=== PATIENT | female | born 1985 | race Caucasian/White ===

== ENCOUNTER 2017-03-10 23:37 | Emergency (ER) | payer MEDICAID, OTHER ==
[~2017-03-10] VITALS: Ht 167.6 cm; Wt 155.7 kg
[~2017-03-10 23:37] MED LIST: CIPR500T4 PO
[2017-03-10 23:41] VITALS: BP 140/100; PULSE 100; RESP 18; TEMP 98.2; O2SAT 97
[2017-03-10] MEDS ORDERED: AZO-95TA2 PO (23:56)
--- NOTE | 2017-03-11 00:14 | PD ---
HPI Chief Complaint: Complaint Time Seen by Provider: 23:58 Travel History International Travel<30 days: No Contact w/Intl Traveler<30days: No Traveled to known affect area: No History of Present Illness HPI The patient is a 31-year-old female that complains of frequency and urgency since 7 PM. She also has bilateral flank pain, right greater than left. She denies any fever, nausea, vomiting or diarrhea. She denies any dysuria. She took Azo and her urine is red/pink and color. PFSH Past Medical History Hx Anticoagulant Therapy: No Chest Pain: Yes (IN THE PAST) Diminished Hearing: No Gastrointestinal Disorders: Yes Immunizations Current: Yes Tetanus Vaccination: Unknown Influenza Vaccination: No ?: Unknown LMP: 02-19- : 1 Para: 1 Past Surgical History Abdominal Surgery: Yes (CHOLESYSTECTOMY 07/22/15) Cardiac Surgery: No Section: Yes Cholecystectomy: Yes (07/2015) Ear Surgery: No Endocrine Surgery: No Eye Surgery: No Genitourinary Surgery: No Gynecologic Surgery: No Hysterectomy: No Joint Replacement: No Oral Surgery: Yes (tonsillectomy) Thoracic Surgery: No Tonsillectomy: Yes Other Surgery: Yes Social History Alcohol Use: No Tobacco Use: Yes (11/10 ppd) Substance Use: No Allergies-Medications (Allergen,Severity, Reaction): Coded Allergies: No Known Allergies (Unverified , 03/10/17) Reported Meds & Prescriptions Reported Meds & Active Scripts Active Reported Azo-Standard (Phenazopyridine HCl) 95 Mg Tab 95 Mg PO Q8H PRN Review of Systems Except as stated in HPI: all other systems reviewed are Neg Physical Exam Narrative GENERAL: Well-nourished, well-developed patient in slight apparent distress with her urinary symptoms. Her blood pressure is 140/100 with a heart rate of 100 but the rest of the vital signs are normal. SKIN: Focused skin assessment warm/dry. No skin rash is present. HEAD: Normocephalic. EYES: No scleral icterus. No injection or drainage. NECK: Supple, trachea midline. No JVD or lymphadenopathy. CARDIOVASCULAR: Regular rate and rhythm without murmurs, gallops, or rubs. RESPIRATORY: Breath sounds equal bilaterally. No accessory muscle use. GASTROINTESTINAL: Abdomen soft, with tenderness to direct palpation in the bilateral flanks and suprapubic area, nondistended. No guarding or rebound is present. MUSCULOSKELETAL: No cyanosis, or edema. BACK: Nontender without obvious deformity. No CVA tenderness. Data Data Last Documented VS Vital Signs Date Time Temp Pulse Resp B/P Pulse Ox O2 Delivery O2 Flow Rate FiO2 03/10/17 23:41 98.2 100 18 140/100 97 Orders Urinalysis - C+S If Indicated (03/11/17 00:11) Ed Urine Pregnancytest Poc (03/11/17 00:11) Urine Culture (03/11/17 00:05) Labs Laboratory Tests Test 03/11/17 00:05 Urine Color ORANGE Urine Turbidity CLOUDY Urine pH 5.0 Urine Specific Raven 1.019 Urine Protein 100 mg/dL Urine Glucose (UA) 100 mg/dL Urine Ketones TRACE mg/dL Urine Occult Blood SMALL Urine Nitrite POS Urine Bilirubin NEG Urine Leukocyte Esterase MOD Urine RBC 3-5 /hpf Urine WBC 100-200 /hpf Urine Squamous Epithelial > 8 /hpf Cells Urine Bacteria MANY /hpf Microscopic Urinalysis Comment CULTURE INDICATED MDM Medical Decision Making Medical Screen Exam Complete: Yes Emergency Medical Condition: Yes Medical Record Reviewed: Yes Interpretation(s) The urine shows orange in color, cloudy with 100 protein, 100 glucose, trace ketones, small occult blood and positive nitrite and moderate leukocyte esterase and 100 200 white cells and many bacteria and culture is indicated. Differential Diagnosis Urinary tract infection, urinary stone, herpes genitalis Narrative Course The patient has a urinary tract infection. She appears to have both cystitis with her bladder symptoms and pyelonephritis with her flank tenderness. It was stressed to her that she needs to increase her liquid intake and establish a good urine flow through your kidneys. The patient has to by her own medicines and she cannot afford an expensive medicine. She will be given Cipro 500 twice daily for 10 days and she is told that this medication is free at [email or web address] Diagnosis Primary Impression: Pyelonephritis Additional Impression: Cystitis Additional Instructions: This medication and is free of [email or web address] pharmacy. It is one tablet twice daily for 10 days. As we discussed, it is extremely important to drink plenty of liquids to establish a good urine flow through your kidneys. This will literally wash the germs downstream and keep them away from your kidneys. Med/Other Pt SpecificInfo: Prescription(s) given Scripts Ciprofloxacin (Cipro)500 Mg Svt113 Mg PO BID 10 Days Ref 0 Prov:Ramos Lino MD 03/11/17 Disposition: 01 DISCHARGE HOME Condition: Stable Ramos Lino MD March 11, 2017 00:14
[2017-03-11 00:29] LABS: BLOOD, URINE SMALL (NEG); GLUCOSE,URINE 100 mg/dL (NEG); KETONE, URINE TRACE mg/dL (NEG)
[2017-03-11 00:35] LABS: NITRITE,URINE POS (NEG); URINE COLOR ORANGE (YELLW/STRAW)
[2017-03-11 00:36] LABS: BACTERIA, URINE MANY /hpf; COMMENT (UR) CULTURE INDICATED; CULTURE IF INDICATED CULTURE INDICATED; SQUAMOUS EPITHELIAL CELL URINE > 8 /hpf (0-5); WBC, URINE 100-200 /hpf (0-5)
[2017-03-11] MEDS ORDERED: CIPR-9 PO (00:59)
[2017-03-11] MEDS ORDERED: CIPROFLOXACIN 500 MG TAB PO ONE (01:15)
== END 2017-03-11 01:21 | disposition home or self-care (01) ==
LOC: PHED 23:37
DX: N10 Acute pyelonephritis (principal); B96.1 Klebsiella pneumoniae [K. pneumoniae] as the cause of diseases classified elsewhere; N30.00 Acute cystitis without hematuria; F17.210 Nicotine dependence, cigarettes, uncomplicated
CPT/HCPCS: 81001; 84703; 87077; 87086; 87186; 99284

== ENCOUNTER 2017-07-20 16:23 | Emergency (ER) | payer SELFPAY ==
[~2017-07-20] VITALS: Ht 167.6 cm; Wt 143.9 kg
[~2017-07-20 16:23] MED LIST changes: +AZO-95TA2 PO; +CIPR-9 PO; -CIPR500T4 PO
[2017-07-20 16:26] VITALS: BP 149/87; PULSE 102; RESP 18; TEMP 98.5; O2SAT 100
[2017-07-20] MEDS ORDERED: LOTR1CRE TOPICAL (17:05)
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
[2017-07-20] MEDS ORDERED: VIST50CA PO (17:45)
[2017-07-20] MEDS ORDERED: BENZ100 PO (17:52)
--- NOTE | 2017-07-21 14:23 | EKG ---
Date Performed: 07/20/2017 Time Performed: 17:27:49 PTAGE: 32 years EKG: Sinus rhythm LOW QRS VOLTAGE IN PRECORDIAL LEADS OTHERWISE WITHIN NORMAL LIMITS Compared to prior tracing no sign ificant change PREVIOUS TRACING : 10/18/2010 14.27 DOCTOR: Adolfo Jesus Interpretating Date/Time 07/21/2017 14:23:11
== END 2017-07-20 18:00 | disposition home or self-care (01) ==
LOC: PHEFT 16:23
DX: J00 Acute nasopharyngitis [common cold] (principal); B97.89 Other viral agents as the cause of diseases classified elsewhere; F41.9 Anxiety disorder, unspecified; R07.81 Pleurodynia; R05 Cough; R50.9 Fever, unspecified; F17.200 Nicotine dependence, unspecified, uncomplicated; Z87.19 Personal history of other diseases of the digestive system
CPT/HCPCS: 93005

== ENCOUNTER 2017-09-11 10:32 | Emergency (ER) | payer MEDICAID ==
[~2017-09-11] VITALS: Ht 167.6 cm; Wt 143.0 kg
[~2017-09-11 10:32] MED LIST changes: -AZO-95TA2 PO; +BENZ100 PO; -CIPR-9 PO; +VIST50CA PO
[2017-09-11 10:35] VITALS: BP 130/75; PULSE 87; RESP 18; TEMP 97.3; O2SAT 97
[2017-09-11] MEDS ORDERED: PRED20 PO (11:22)
[2017-09-11] MEDS ORDERED: AZIT250T3 PO (11:22)
[2017-09-11] MEDS ORDERED: BENZ100 PO (11:22)
--- NOTE | 2017-09-11 11:23 | PD ---
HPI Chief Complaint: Cold / Flu Symptoms Time Seen by Provider: 10:58 Travel History International Travel<30 days: No Contact w/Intl Traveler<30days: No Traveled to known affect area: No History of Present Illness HPI 32-year-old female here with productive cough, body aches, chills 4 days. She reports multiple sick contacts at work who currently have pneumonia. She reports chills without documented fever. She denies chest pain, shortness of breath, abdominal pain. She reports and written episodes of mild wheezing. She has no past medical history. No allergies to medications. Severity is moderate. No alleviating factors. PFSH Past Medical History Hx Anticoagulant Therapy: No Diminished Hearing: No Gastrointestinal Disorders: Yes Immunizations Current: Yes Tetanus Vaccination: > 5 Years Influenza Vaccination: No ?: Unknown LMP: 08/21/17 : 1 Para: 1 Past Surgical History Abdominal Surgery: Yes (CHOLESYSTECTOMY 07/22/15) Cardiac Surgery: No Section: Yes Cholecystectomy: Yes (07/2015) Ear Surgery: No Endocrine Surgery: No Eye Surgery: No Genitourinary Surgery: No Gynecologic Surgery: No Hysterectomy: No Joint Replacement: No Oral Surgery: Yes (tonsillectomy) Thoracic Surgery: No Tonsillectomy: Yes Other Surgery: Yes Social History Alcohol Use: No Tobacco Use: Yes (11/10 ppd) Substance Use: No Allergies-Medications (Allergen,Severity, Reaction): Coded Allergies: No Known Allergies (Unverified , 07/20/17) Reported Meds & Prescriptions Reported Meds & Active Scripts Active Tessalon Perles (Benzonatate) 100 Mg Cap 100 Mg PO TID PRN 5 Days Prednisone 20 Mg Tab 40 Mg PO DAILY Take 40 mg (2 tablets) daily for 5 days Azithromycin 250 Mg Tab 250 Mg PO DIRECTED Take 2 tabs (500 mg) on day 1 then 1 tab daily x 4 days. Review of Systems Except as stated in HPI: all other systems reviewed are Neg General / Constitutional: Positive: Chills Respiratory: Positive: Cough Physical Exam Narrative GENERAL: Alert, well-appearing female in no acute distress. SKIN: Warm and dry. HEAD: Normocephalic. EYES: No scleral icterus. No injection or drainage. NECK: Supple, trachea midline. No JVD or lymphadenopathy. CARDIOVASCULAR: Regular rate and rhythm without murmurs, gallops, or rubs. RESPIRATORY: Breath sounds equal bilaterally. No accessory muscle use. Very Mild expiratory wheezes, cleared with cough. No rhonchi or rales. GASTROINTESTINAL: Abdomen soft, non-tender, nondistended. MUSCULOSKELETAL: No cyanosis, or edema. BACK: Nontender without obvious deformity. No CVA tenderness. Data Data Last Documented VS Vital Signs Date Time Temp Pulse Resp B/P (MAP) Pulse Ox O2 Delivery O2 Flow Rate FiO2 09/11/17 10:47 20 09/11/17 10:35 97.3 87 130/75 (93) 97 Orders Orders Ed Urine Pregnancytest Poc (09/11/17 11:15) MDM Medical Decision Making Medical Screen Exam Complete: Yes Emergency Medical Condition: Yes Differential Diagnosis Bronchitis, pneumonia, influenza Narrative Course 32-year-old female here with productive cough, body aches, chills 4 days. She reports multiple sick contacts at work who currently have pneumonia. Patient's vital signs are stable. She is nontoxic appearing. She has mild expiratory wheezes on exam. She will be treated with Z-Joshua, steroids, bronchodilator, antitussives. Advised to follow up PCP. Patient verbalizes understanding and agrees to plan Diagnosis Primary Impression: Bronchitis Referrals: [facility] Departure Forms: Tests/Procedures, Work Release Enter return to work date: Sep 12, 2017 Additional Instructions: TAKE IBUPROFEN 600-800MG BY MOUTH EVERY 6 HOURS NEEDED FOR PAIN REST & STAY WELL HYDRATED. Scripts Benzonatate (Tessalon Perles) 100 Mg Cap 100 MG PO TID Y for COUGH for 5 Days, CAP 0 Refills Prov: Neelam Bartlett 09/11/17 Prednisone (Prednisone) 20 Mg Tab 40 MG PO DAILY, #10 TAB 0 Refills Take 40 mg (2 tablets) daily for 5 days Prov: Neelam Bartlett 09/11/17 Azithromycin (Azithromycin) 250 Mg Tab 250 MG PO DIRECTED for Infection, #6 TAB 0 Refills Take 2 tabs (500 mg) on day 1 then 1 tab daily x 4 days. Prov: Neelam Bartlett 09/11/17 Disposition: 01 DISCHARGE HOME Condition: Stable Neelam Bartlett Sep 11, 2017 11:23
== END 2017-09-11 11:33 | disposition home or self-care (01) ==
LOC: PHEFT 10:32
DX: J40 Bronchitis, not specified as acute or chronic (principal); M79.1 Myalgia; R68.83 Chills (without fever); F17.200 Nicotine dependence, unspecified, uncomplicated; Z87.19 Personal history of other diseases of the digestive system
CPT/HCPCS: 84703; 99284

== ENCOUNTER 2017-12-04 00:11 | Emergency (ER) | payer MEDICAID ==
[~2017-12-04] VITALS: Ht 167.6 cm; Wt 140.6 kg
[~2017-12-04 00:11] MED LIST changes: +AZIT250T3 PO; +PRED20 PO; -VIST50CA PO
[2017-12-04 00:16] VITALS: BP 146/95; PULSE 128; RESP 16; TEMP 98.7; O2SAT 99
[2017-12-04] MEDS ORDERED: IBUPROFEN 800 MG TAB PO ONE (01:30)
[2017-12-04] MEDS ORDERED: ACETAMINOPHEN/HYDROcodone 325 MG/5 MG TAB PO ONE (01:30)
--- NOTE | 2017-12-04 01:35 | PD ---
HPI Chief Complaint: Fall Time Seen by Provider: 01:27 Travel History International Travel<30 days: No Contact w/Intl Traveler<30days: No Traveled to known affect area: No History of Present Illness HPI 32-year-old white female presents to emergency department for evaluation of a fall. She states that she was going down her stairs and slipped on the last 4 steps. She struck both lower legs. She states that she did not hit her head or hurt her neck or back initially. She states that while waiting here she is feeling stiffness and pain in her head and neck. She denies syncope. No numbness, tingling. She states the pain is moderate but can be more severe with walking. Some relief with elevation. She has not had a tetanus shot over 5 years. PFSH Past Medical History Hx Anticoagulant Therapy: No Diminished Hearing: No Gastrointestinal Disorders: Yes Immunizations Current: Yes Tetanus Vaccination: > 5 Years LMP: 11/18/17 : 1 Para: 1 Past Surgical History Abdominal Surgery: Yes (CHOLESYSTECTOMY 07/22/15) Cardiac Surgery: No Section: Yes Cholecystectomy: Yes (07/2015) Ear Surgery: No Endocrine Surgery: No Eye Surgery: No Genitourinary Surgery: No Gynecologic Surgery: No Hysterectomy: No Joint Replacement: No Oral Surgery: Yes (tonsillectomy) Thoracic Surgery: No Tonsillectomy: Yes Other Surgery: Yes Social History Alcohol Use: No Tobacco Use: Yes (11/10 ppd) Substance Use: No Allergies-Medications (Allergen,Severity, Reaction): Coded Allergies: No Known Allergies (Unverified , 07/20/17) Reported Meds & Prescriptions Reported Meds & Active Scripts Active Tessalon Perles (Benzonatate) 100 Mg Cap 100 Mg PO TID PRN 5 Days Prednisone 20 Mg Tab 40 Mg PO DAILY Take 40 mg (2 tablets) daily for 5 days Azithromycin 250 Mg Tab 250 Mg PO DIRECTED Take 2 tabs (500 mg) on day 1 then 1 tab daily x 4 days. Review of Systems Except as stated in HPI: all other systems reviewed are Neg Physical Exam Narrative GENERAL: Well-developed, well-nourished in no apparent distress. Nontoxic appearing. HEAD: Normocephalic, atraumatic. EYES: Pupils equal round and reactive. Extraocular motions intact. No scleral icterus. No injection or drainage. ENT: Nose clear. Throat without erythema, tonsillar hypertrophy or exudate. Uvula midline. Airway patent. NECK: Trachea midline. Supple, mild paraspinal tenderness, moves head freely. No central bony tenderness or spasm. CARDIOVASCULAR: Regular rate and rhythm without murmurs, gallops, or rubs. RESPIRATORY: Clear to auscultation. Breath sounds equal bilaterally. No wheezes , rales, or rhonchi. GASTROINTESTINAL: Abdomen soft, non-tender, nondistended. No hepato-splenomegaly , or palpable masses. No guarding. EXTREMITIES: No clubbing, cyanosis, or edema. No joint tenderness. Patient has abrasions and tenderness to both pretibial regions. Early ecchymosis. No bony tenderness. BACK: Nontender without deformity. No flank tenderness. NEUROLOGICAL: Awake, alert and oriented x 3 .Cranial nerves grossly intact. Motor and sensory grossly within normal limits. Normal speech. Data Data Last Documented VS Vital Signs Date Time Temp Pulse Resp B/P (MAP) Pulse Ox O2 Delivery O2 Flow Rate FiO2 12/04/17 00:16 98.7 128 16 146/95 (112) 99 Room Air Orders Orders Tibia/Fibula (Ap/Lat) (12/04/17 01:30) Ice/Cold Pack (12/04/17 01:30) Ibuprofen (Motrin) (12/04/17 01:30) Acetamin-Hydrocod 325-5 Mg ([place]more 5-325 (12/04/17 01:30) Tibia/Fibula (Ap/Lat) (12/04/17 01:30) MDM Medical Decision Making Medical Screen Exam Complete: Yes Emergency Medical Condition: Yes Medical Record Reviewed: Yes Interpretation(s) Left tib-fib: Negative for acute fracture. Right tib-fib: Negative for fracture Differential Diagnosis MDM: High Differential diagnoses: Fracture, sprain, strain, dislocation, contusion, neurovascular injury Narrative Course Patient is given tetanus in position, Motrin 800 mg and Lortab 5 a grams by mouth. X-rays of the tib-fib's. X-rays are negative for bony injury. This is fall, bilateral leg contusions Diagnosis Primary Impression: fall Additional Impression: bilateral leg contusions Patient Instructions: Narcotic given in the ED, General Instructions Departure Forms: Tests/Procedures, Work Release Special Instructions: No work 2 days. Additional Instructions: Rest. Ice for the next 3 days followed by heat . Flexeril and Voltaren. Follow-up with a primary care doctor in one week. Return to the ER for emergencies. Med/Other Pt SpecificInfo: Prescription(s) given Disposition: 01 DISCHARGE HOME Condition: Stable José Manuel Kline Dec 04, 2017 01:35
[2017-12-04] MEDS ORDERED: DICL75TA PO (01:37)
[2017-12-04] MEDS ORDERED: CYCL10TA PO (01:37)
[2017-12-04] MEDS ORDERED: TETANUS/DIPHTHERIA TOXOID ADULT 0.5 ML VIAL IM ONE (01:45)
--- NOTE | 2017-12-04 02:39 | RADRPT ---
EXAM DATE/TIME: 12/04/2017 01:51 [facility] COMPARISON: No previous studies available for comparison. INDICATIONS : Pt fell down concrete steps- Pain to bilateral Tib-Fib MEDICAL HISTORY : None. SURGICAL HISTORY : None. ENCOUNTER: Initial ACUITY: 1 day PAIN SCORE: 8/10 LOCATION: Right Tib-Fib FINDINGS: Two view examination of the right tibia demonstrates no evidence of fracture or dislocation. Bony mi neralization is normal. The soft tissue structures are intact. CONCLUSION: No acute disease. Flo Orourke MD on December 04, 2017 at 2:36 Board Certified Radiologist. This report was verified electronically.
--- NOTE | 2017-12-04 02:39 | RADRPT ---
EXAM DATE/TIME: 12/04/2017 01:51 [facility] COMPARISON: No previous studies available for comparison. INDICATIONS : Pt fell down concrete steps- Pain to bilateral Tib-Fib MEDICAL HISTORY : None. SURGICAL HISTORY : None. ENCOUNTER: Initial ACUITY: 1 day PAIN SCORE: 8/10 LOCATION: Left Tib-Fib FINDINGS: No fracture is seen. The knee and ankle joints are normally aligned. There is soft tissue swelling of the anterior proximal lower leg. CONCLUSION: Soft tissue swelling. Flo Orourke MD on December 04, 2017 at 2:36 Board Certified Radiologist. This report was verified electronically.
== END 2017-12-04 02:25 | disposition home or self-care (01) ==
LOC: NEPD 00:11
DX: S80.11XA Contusion of right lower leg, initial encounter (principal); S80.12XA Contusion of left lower leg, initial encounter; M54.2 Cervicalgia; F17.200 Nicotine dependence, unspecified, uncomplicated; W10.9XXA Fall (on) (from) unspecified stairs and steps, initial encounter; Z23 Encounter for immunization
CPT/HCPCS: 73590; 90471; 90714

== ENCOUNTER 2017-12-11 00:35 | Emergency (ER) | payer MEDICAID ==
[~2017-12-11] VITALS: Ht 167.6 cm; Wt 140.0 kg
[~2017-12-11 00:35] MED LIST changes: +CYCL10TA PO; +DICL75TA PO
[2017-12-11 00:40] VITALS: BP 141/103; PULSE 129; RESP 16; TEMP 97.9; O2SAT 100
[2017-12-11] MEDS ORDERED: SODIUM CHLORIDE 0.9% FLUSH 10 ML FLUSH IV FLUSH PRN (01:00)
[2017-12-11] MEDS ORDERED: MORPHINE SULFATE 2 MG/ML INJ IV PUSH ONE (01:00)
--- NOTE | 2017-12-11 01:05 | PD ---
HPI Chief Complaint: Pain: Acute or Chronic Time Seen by Provider: 00:53 Travel History International Travel<30 days: No Contact w/Intl Traveler<30days: No Traveled to known affect area: No History of Present Illness HPI 32-year-old female here for evaluation of bilateral lower extremity pain, swelling, and ecchymosis. The patient reports that she was here a week ago with bilateral leg injuries after falling down a set of stairs. Chart was reviewed from this visit and show that the patient had bilateral tib-fib x-rays which showed soft tissue swelling, no acute bony abnormality. 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 Today she noticed that the bruising appears to be worsening and is traveling down her legs into her feet. Pain is moderate to severe, constant, described as burning, worse with movement and palpation. No history of DVT or PE. No chest pain or dyspnea. No further trauma. PFSH Past Medical History Hx Anticoagulant Therapy: No Chest Pain: Yes (IN THE PAST) Diminished Hearing: No Gastrointestinal Disorders: Yes Immunizations Current: Yes Tetanus Vaccination: < 5 Years ?: Not LMP: 11/16/2017 : 1 Para: 1 Past Surgical History Abdominal Surgery: Yes (CHOLESYSTECTOMY 07/22/15) Cardiac Surgery: No Section: Yes Cholecystectomy: Yes (07/2015) Ear Surgery: No Endocrine Surgery: No Eye Surgery: No Genitourinary Surgery: No Gynecologic Surgery: No Hysterectomy: No Joint Replacement: No Oral Surgery: Yes (tonsillectomy) Thoracic Surgery: No Tonsillectomy: Yes Other Surgery: Yes Social History Alcohol Use: No Tobacco Use: Yes (11/10 ppd) Substance Use: No Allergies-Medications (Allergen,Severity, Reaction): Coded Allergies: No Known Allergies (Unverified Adverse Reaction, Unknown, 12/11/17) Reported Meds & Prescriptions Reported Meds & Active Scripts Active Flexeril (Cyclobenzaprine HCl) 10 Mg Tab 10 Mg PO TID Diclofenac Sodium DR (Diclofenac Sodium) 75 Mg Tabdr 75 Mg PO BID Tessalon Perles (Benzonatate) 100 Mg Cap 100 Mg PO TID PRN 5 Days Prednisone 20 Mg Tab 40 Mg PO DAILY Take 40 mg (2 tablets) daily for 5 days Azithromycin 250 Mg Tab 250 Mg PO DIRECTED Take 2 tabs (500 mg) on day 1 then 1 tab daily x 4 days. Review of Systems Except as stated in HPI: all other systems reviewed are Neg Physical Exam Narrative GENERAL: Well-developed, well-nourished, overweight, comfortable, no apparent distress. SKIN: Bilateral anterior legs with diffuse ecchymosis with ecchymosis in bilateral feet. HEAD: Atraumatic. Normocephalic. EYES: Pupils equal and round. No scleral icterus. No injection or drainage. ENT: No nasal bleeding or discharge. Mucous membranes pink and moist. NECK: Trachea midline. No JVD. CARDIOVASCULAR: Regular rate and rhythm. Bilateral dorsalis pedis pulses are brisk and equal. RESPIRATORY: No accessory muscle use. Clear to auscultation. Breath sounds equal bilaterally. GASTROINTESTINAL: Abdomen soft, non-tender, nondistended. Hepatic and splenic margins not palpable. MUSCULOSKELETAL: Skin exam as above. Moderate edema to bilateral lower extremities from foot to knee. Left anterior/proximal leg with moderate sized hematoma. All compartments in bilateral lower extremities are supple. Bilateral feet are neurovascularly intact. Normal range of motion flexion and extension in bilateral lower extremities in foot, knee, ankle, and hip joints. NEUROLOGICAL: Awake and alert. No obvious cranial nerve deficits. Motor grossly within normal limits. Normal speech. PSYCHIATRIC: Appropriate mood and affect; insight and judgment normal. Data Data Last Documented VS Vital Signs Date Time Temp Pulse Resp B/P (MAP) Pulse Ox O2 Delivery O2 Flow Rate FiO2 12/11/17 02:59 98 18 116/56 (76) 97 12/11/17 00:40 97.9 Room Air Orders Orders Beta Hcg (Quant/Titer) (12/11/17 00:58) Complete Blood Count With Diff (12/11/17 00:58) Comprehensive Metabolic Panel (12/11/17 00:58) Prothrombin Time / Inr (Pt) (12/11/17 00:58) Act Partial Throm Time (Ptt) (12/11/17 00:58) Iv Access Insert/Monitor (12/11/17 00:58) Ecg Monitoring (12/11/17 00:58) Oximetry (12/11/17 00:58) Sodium Chloride 0.9% Flush (Ns Flush) (12/11/17 01:00) Us Leg Venous Doppler Bilat (12/11/17 ) Morphine Inj (Morphine Inj) (12/11/17 01:00) Creatine Kinase (Cpk) (12/11/17 00:58) Labs Laboratory Tests Test 12/11/17 01:10 White Blood Count 11.5 TH/MM3 Red Blood Count 4.82 MIL/MM3 Hemoglobin 12.9 GM/DL Hematocrit 37.8 % Mean Corpuscular Volume 78.4 FL Mean Corpuscular Hemoglobin 26.7 PG Mean Corpuscular Hemoglobin Concent 34.1 % Red Cell Distribution Width 15.8 % Platelet Count 319 TH/MM3 Mean Platelet Volume 8.9 FL Neutrophils (%) (Auto) 65.4 % Lymphocytes (%) (Auto) 28.1 % Monocytes (%) (Auto) 4.5 % Eosinophils (%) (Auto) 1.2 % Basophils (%) (Auto) 0.8 % Neutrophils # (Auto) 7.5 TH/MM3 Lymphocytes # (Auto) 3.2 TH/MM3 Monocytes # (Auto) 0.5 TH/MM3 Eosinophils # (Auto) 0.1 TH/MM3 Basophils # (Auto) 0.1 TH/MM3 CBC Comment DIFF FINAL Differential Comment Prothrombin Time 9.6 SEC Prothromb Time International Ratio 0.9 RATIO Activated Partial Thromboplast Time 30.3 SEC Blood Urea Nitrogen 13 MG/DL Creatinine 0.87 MG/DL Random Glucose 96 MG/DL Total Protein 7.9 GM/DL Albumin 3.7 GM/DL Calcium Level 8.7 MG/DL Alkaline Phosphatase 107 U/L Aspartate Amino Transf (AST/SGOT) 21 U/L Alanine Aminotransferase (ALT/SGPT) 24 U/L Total Bilirubin 0.4 MG/DL Sodium Level 139 MEQ/L Potassium Level 4.0 MEQ/L Chloride Level 104 MEQ/L Carbon Dioxide Level 26.6 MEQ/L Anion Gap 8 MEQ/L Estimat Glomerular Filtration Rate 76 ML/MIN Total Creatine Kinase 53 U/L Human Chorionic Gonadotropin, Quant LESS THAN 1 MIU/ML MDM Medical Decision Making Medical Screen Exam Complete: Yes Emergency Medical Condition: Yes Differential Diagnosis Bilateral lower cavity edema after trauma, DVT, compartment syndrome less likely Narrative Course Vital signs reviewed. CBC: WBC 11.5, hemoglobin 12.9, hematocrit 37.8, platelets 319. CMP is unremarkable. Total CK is 53. Beta hCG is negative. Bilateral lower extremity venous duplex: Normal exam. Patient was made aware of all findings. She was given a dose of morphine and is resting comfortably. All compartments in her bilateral lower trauma is are supple. Clinically she does not have compartment syndrome. Her CK is also normal at 53. She has brisk bilateral dorsalis pedis pulses. She does have diffuse ecchymosis to bilateral lower extremities, mainly anterior. She did have an injury about a week ago. There are no signs of cellulitis. At this point I believe she is stable for discharge home and advised to keep her legs elevated as much as possible. PMD follow-up this week. She was advised on when to return to the emergency department. She verbalizes understanding and agreement with plan. Diagnosis Primary Impression: Bilateral leg pain Additional Impressions: Bilateral leg edema Traumatic ecchymosis of lower leg Qualified Codes: S80.10XA - Contusion of unspecified lower leg, initial encounter Referrals: [facility] 3 days Primary Care Physician 3 days Additional Instructions: Follow-up with a primary care physician this week. Return to the emergency department for worsening symptoms or any other concerns. Scripts Hydrocodone-Acetaminophen (Hydrocodone-Acetaminophen) 5-325 mg Tab 1 TAB PO Q6H Y for PAIN, #10 TAB 0 Refills Prov: Raudel Ying MD 12/11/17 Disposition: 01 DISCHARGE HOME Condition: Stable Raudel Ying MD Dec 11, 2017 01:04
[2017-12-11 01:42] LABS: HEMATOCRIT 37.8 % (35.0-46.0); HEMOGLOBIN 12.9 GM/DL (11.6-15.3); MEAN CELL VOLUME 78.4 FL (80.0-100.0); MEAN CORPUSCULAR HEMOGLOBIN 26.7 PG (27.0-34.0); MEAN CORPUSCULAR HGB CONC 34.1 % (32.0-36.0); MEAN PLATELET VOLUME 8.9 FL (7.0-11.0); NEUT % 65.4 % (16.0-70.0); PLATELET COUNT 319 TH/MM3 (150-450); RED BLOOD COUNT 4.82 MIL/MM3 (4.00-5.30); RED CELL DISTRIBUTION WIDTH 15.8 % (11.6-17.2); WHITE BLOOD COUNT 11.5 TH/MM3 (4.0-11.0)
[2017-12-11 01:43] LABS: AUTOMATED NEUTROPHIL # 7.5 TH/MM3 (1.8-7.7); BASOPHIL # 0.1 TH/MM3 (0-0.2); BASOPHIL % 0.8 % (0.0-2.0); EOSINOPHIL # 0.1 TH/MM3 (0-0.4); EOSINOPHIL % 1.2 % (0.0-4.0); LYMPH % 28.1 % (9.0-44.0); LYMPHOCYTE # 3.2 TH/MM3 (1.0-4.8); MONO % 4.5 % (0.0-8.0); MONOCYTE # 0.5 TH/MM3 (0-0.9)
[2017-12-11 01:56] LABS: INTERNATIONAL NORMALIZED RATIO 0.9 RATIO; PROTHROMBIN TIME - PATIENT 9.6 SEC (9.8-11.6)
[2017-12-11 01:58] LABS: ALBUMIN 3.7 GM/DL (3.4-5.0); ALT (GPT) 24 U/L (10-53); AST (GOT) 21 U/L (15-37); BICARBONATE 26.6 MEQ/L (21.0-32.0); BLOOD UREA NITROGEN 13 MG/DL (7-18); CALCIUM 8.7 MG/DL (8.5-10.1); CHLORIDE 104 MEQ/L (98-107); CREATININE 0.87 MG/DL (0.50-1.00); GLOMERULAR FILTRATION RATE 76 ML/MIN (>89); GLUCOSE,RANDOM 96 MG/DL (74-106); SODIUM (NA) 139 MEQ/L (136-145)
[2017-12-11 02:11] LABS: ALKALINE PHOSPHATASE 107 U/L (45-117); TOTAL BILIRUBIN ADULT 0.4 MG/DL (0.2-1.0); TOTAL PROTEIN 7.9 GM/DL (6.4-8.2)
--- NOTE | 2017-12-11 02:57 | RADRPT ---
EXAM DATE/TIME: 12/11/2017 01:58 [facility] COMPARISON: No previous studies available for comparison. INDICATIONS : Bilateral leg edema. MEDICAL HISTORY : Chest pain. Tobacco use. SURGICAL HISTORY : Tonsillectomy.Cholecystectomy. section. ENCOUNTER: Initial ACUITY: 1 week PAIN SCORE: 10/10 LOCATION: Bilateral leg. TECHNIQUE: Venous ultrasound of the left and right leg was performed from the inguinal ligament to the proximal calf. Real-time, color Doppler and spectral tracing, compression and augmentation techniques were us ed. FINDINGS: RIGHT LEG: There is normal compressibility of the deep venous system from the inguinal region to the proximal ca lf. No echogenic clot is seen in the lumen of the common femoral, femoral, popliteal, and posterior tibial veins. There is a normal response of the venous system to proximal and distal augmentation an d respiration. LEFT LEG: There is normal compressibility of the deep venous system from the inguinal region to the proximal ca lf. No echogenic clot is seen in the lumen of the common femoral, femoral, popliteal, and posterior tibial veins. There is a normal response of the venous system to proximal and distal augmentation an d respiration. CONCLUSION: Normal examination. Nikolay Norris MD on December 11, 2017 at 2:56 Board Certified Radiologist. This report was verified electronically.
[2017-12-11 02:59] VITALS: BP 116/56; PULSE 98; RESP 18; O2SAT 97
[2017-12-11] MEDS ORDERED: HYDR-3516 PO (03:07)
[2017-12-11] MEDS ORDERED: KETOROLAC TROMETHAMINE 30 MG/ML (IVP) VIAL IV PUSH ONE (04:00)
== END 2017-12-11 04:11 | disposition home or self-care (01) ==
LOC: NEPE 00:35
DX: S80.12XD Contusion of left lower leg, subsequent encounter (principal); S80.11XD Contusion of right lower leg, subsequent encounter; E66.3 Overweight; F17.200 Nicotine dependence, unspecified, uncomplicated; W10.9XXD Fall (on) (from) unspecified stairs and steps, subsequent encounter; Z79.899 Other long term (current) drug therapy
CPT/HCPCS: 80053; 82550; 84702; 85025; 85610; 85730; 93970; 96374; 96375; 99284; J1885; J2270

== ENCOUNTER 2018-02-06 13:02 | Emergency (ER) | payer SELFPAY ==
[~2018-02-06] VITALS: Ht 167.6 cm; Wt 140.4 kg
[~2018-02-06 13:02] MED LIST changes: +HYDR-3516 PO
[2018-02-06 13:21] VITALS: BP 153/79; PULSE 106; RESP 20; TEMP 98.7; O2SAT 99
--- NOTE | 2018-02-06 14:08 | RADRPT ---
EXAM DATE/TIME: 02/06/2018 13:35 [facility] COMPARISON: No previous studies available for comparison. INDICATIONS : Left hand pain, injured while mopping. MEDICAL HISTORY : None. SURGICAL HISTORY : None. ENCOUNTER: Initial ACUITY: 3 days PAIN SCORE: 8/10 LOCATION: Left middle hand FINDINGS: Three view examination of the left hand demonstrates no soft tissue swelling, dislocation, or fractur e. The carpal bones appear intact. The interphalangeal and metacarpophalangeal joints are intact. Bony mineralization is normal. CONCLUSION: Negative exam. No acute osseous injury. Partha Claire MD on February 06, 2018 at 14:02 Board Certified Radiologist. This report was verified electronically.
[2018-02-06] MEDS ORDERED: DICL75TA PO (14:23)
[2018-02-06] MEDS ORDERED: BACL10TA PO (14:23)
--- NOTE | 2018-02-06 14:26 | PD ---
HPI Chief Complaint: Pain: Acute or Chronic Time Seen by Provider: 14:22 Travel History International Travel<30 days: No Contact w/Intl Traveler<30days: No Traveled to known affect area: No History of Present Illness HPI [id number] female presents for evaluation of left hand pain. Symptoms started yesterday after mopping. She describes it as a crampy/sharp pain in the left hand which is worse with movement. Denies any neck pain, arm pain, numbness or tingling. Denies any trauma. She has no other complaints at this time. PFSH Past Medical History Hx Anticoagulant Therapy: No Chest Pain: Yes (IN THE PAST) Diminished Hearing: No Gastrointestinal Disorders: Yes Immunizations Current: Yes ?: Not LMP: 4 days ago : 1 Para: 1 Past Surgical History Abdominal Surgery: Yes (CHOLESYSTECTOMY 07/22/15) Cardiac Surgery: No Section: Yes Cholecystectomy: Yes (07/2015) Ear Surgery: No Endocrine Surgery: No Eye Surgery: No Genitourinary Surgery: No Gynecologic Surgery: No Hysterectomy: No Joint Replacement: No Oral Surgery: Yes (tonsillectomy) Thoracic Surgery: No Tonsillectomy: Yes Other Surgery: Yes Social History Alcohol Use: No Tobacco Use: Yes (11/10 ppd) Substance Use: No Allergies-Medications (Allergen,Severity, Reaction): Coded Allergies: No Known Allergies (Unverified Adverse Reaction, Unknown, 12/11/17) Reported Meds & Prescriptions Reported Meds & Active Scripts Active Diclofenac Sodium DR (Diclofenac Sodium) 75 Mg Tabdr 75 Mg PO BID 7 Days Baclofen 10 Mg Tab 10 Mg PO Q8HR 7 Days Hydrocodone-Acetaminophen 5-325 mg Tab 1 Tab PO Q6H PRN Flexeril (Cyclobenzaprine HCl) 10 Mg Tab 10 Mg PO TID Diclofenac Sodium DR (Diclofenac Sodium) 75 Mg Tabdr 75 Mg PO BID Tessalon Perles (Benzonatate) 100 Mg Cap 100 Mg PO TID PRN 5 Days Prednisone 20 Mg Tab 40 Mg PO DAILY Take 40 mg (2 tablets) daily for 5 days Azithromycin 250 Mg Tab 250 Mg PO DIRECTED Take 2 tabs (500 mg) on day 1 then 1 tab daily x 4 days. Review of Systems Musculoskeletal: Positive: Limited ROM, Pain Skin: Positive Other (Denies open wounds) Neurologic: No: Paresthesia Physical Exam Narrative GENERAL: Well-nourished female no acute distress SKIN: Warm and dry. CARDIOVASCULAR: Regular rate and rhythm. No murmur appreciated. RESPIRATORY: No accessory muscle use. Clear to auscultation. Breath sounds equal bilaterally. Extremities: There is tenderness to palpation to the mid left hand. There is no deformity. The patient is holding most of her fingers in passive flexion. She has pain with range of motion activities of the left hand nonspecifically. Distal sensation is preserved in the median, radial, ulnar nerve distributions. 2+ radial pulse. Data Data Last Documented VS Vital Signs Date Time Temp Pulse Resp B/P (MAP) Pulse Ox O2 Delivery O2 Flow Rate FiO2 02/06/18 13:21 98.7 106 20 153/79 (103) 99 Orders Orders Hand, Complete ([id number]) (02/06/18 ) Ketorolac Inj (Toradol Inj) (02/06/18 14:30) Orphenadrine Inj (Norflex Inj) (02/06/18 14:30) MDM Medical Decision Making Medical Screen Exam Complete: Yes Emergency Medical Condition: Yes Medical Record Reviewed: Yes Differential Diagnosis Hand strain, tendinitis, carpal pedal spasm Narrative Course An x-ray of the left hand was obtained in triage which reveals no acute abnormalities. Suspect soft tissue musculoskeletal pain. The plan is to discharge the patient with a short course of muscle relaxants and NSAIDs. Recommend follow-up with a hand specialist for recheck in 1-2 weeks if symptoms persist. Diagnosis Primary Impression: Strain of left hand Referrals: Quentin Sands MD Additional Instructions: Medication as needed. Take diclofenac with meals. Do not drive or drink alcohol and taking baclofen. Follow-up with a hand specialist such as Dr. Sands in 1-2 weeks if symptoms persist. Return for any emergent medical conditions. Med/Other Pt SpecificInfo: Prescription(s) given Scripts Diclofenac Sodium DR (Diclofenac Sodium DR) 75 Mg Tabdr 75 MG PO BID for 7 Days, #14 TAB 0 Refills Prov: Lilliana Valentino MD 02/06/18 Baclofen (Baclofen) 10 Mg Tab 10 MG PO Q8HR for 7 Days, TAB 0 Refills Prov: Lilliana Valentino MD 02/06/18 Disposition: 01 DISCHARGE HOME Condition: Stable Jamel Shepard. PA Feb 06, 2018 14:26
[2018-02-06] MEDS ORDERED: ORPHENADRINE INJ 60 MG/2 ML AMP IM ONE (14:30)
[2018-02-06] MEDS ORDERED: KETOROLAC TROMETHAMINE 60 MG/2 ML (IM) VIAL IM ONE (14:30)
== END 2018-02-06 15:13 | disposition home or self-care (01) ==
LOC: NEPK 13:02
DX: S66.912A Strain of unspecified muscle, fascia and tendon at wrist and hand level, left hand, initial encounter (principal); X58.XXXA Exposure to other specified factors, initial encounter; Y93.E5 Activity, floor mopping and cleaning
CPT/HCPCS: 73130; 96372; 99283; J1885; J2360

== ENCOUNTER 2018-03-15 14:23 | Observation (INO) | payer MEDICAID ==
[~2018-03-15 14:23] MED LIST changes: +BACL10TA PO
[2018-03-15 14:26] VITALS: BP 156/95; PULSE 100; RESP 18; TEMP 98; O2SAT 100
[2018-03-15] MEDS ORDERED: SODIUM CHLOR 0.9% 1000 ML INJ 1,000 ML IV SCH ×2 (14:45→22:16)
[2018-03-15] MEDS ORDERED: SODIUM CHLORIDE 0.9% FLUSH 10 ML FLUSH IV FLUSH PRN ×2 (14:45→22:30)
[2018-03-15] MEDS ORDERED: ONDANSETRON HCL 4 MG/2 ML VIAL IVP ONE (14:45)
[2018-03-15] MEDS ORDERED: MORPHINE SULFATE 4 MG/ML INJ IV PUSH ONE (14:45)
--- NOTE | 2018-03-15 14:55 | PD ---
HPI Chief Complaint: Flank/Kidney Pain Time Seen by Provider: 14:35 Travel History International Travel<30 days: No Contact w/Intl Traveler<30days: No Traveled to known affect area: No History of Present Illness HPI Patient is a 32-year-old female with history of cholecystectomy as well as C- section in the past, ovarian cyst, presents the emergency room complaints of right lower quadrant abdominal pain. Patient reports that around 7-8AM this morning, she began to have right lower quadrant abdominal pain. Patient reports that pain has been persistent, reports that pain is moderate to severe in nature. Patient reports that nothing makes pain better or worse. Patient reports that she feels nauseous and diaphoretic with her symptoms. Denies any constipation or diarrhea, denies any pelvic pain, denies any vaginal discharge, reports that she currently is on her period. Reports that she has never had pain like this in the past. PFSH Past Medical History Hx Anticoagulant Therapy: No Chest Pain: Yes (IN THE PAST) Diminished Hearing: No Gastrointestinal Disorders: Yes Immunizations Current: Yes ?: Unknown : 1 Para: 1 Past Surgical History Abdominal Surgery: Yes (CHOLESYSTECTOMY 07/22/15) Cardiac Surgery: No Section: Yes Cholecystectomy: Yes (07/2015) Ear Surgery: No Endocrine Surgery: No Eye Surgery: No Genitourinary Surgery: No Gynecologic Surgery: No Hysterectomy: No Joint Replacement: No Neurologic Surgery: No Oral Surgery: Yes (tonsillectomy) Thoracic Surgery: No Tonsillectomy: Yes Other Surgery: Yes Social History Alcohol Use: No Tobacco Use: Yes (11/10 ppd) Substance Use: No Allergies-Medications (Allergen,Severity, Reaction): Coded Allergies: No Known Allergies (Unverified Adverse Reaction, Unknown, 12/11/17) Reported Meds & Prescriptions Reported Meds & Active Scripts Active Review of Systems General / Constitutional: No: Fever Eyes: No: Visual changes HENT: No: Headaches Cardiovascular: No: Chest Pain or Discomfort Respiratory: No: Shortness of Breath Gastrointestinal: Positive: Nausea, Abdominal Pain, No: Vomiting, Diarrhea, Constipation Genitourinary: No: Dysuria Musculoskeletal: No: Pain Skin: No Rash Neurologic: No: Weakness Psychiatric: No: Depression Endocrine: No: Polydipsia Hematologic/Lymphatic: No: Easy Bruising Physical Exam Narrative GENERAL: moderate distress SKIN: Focused skin assessment warm/dry. HEAD: Atraumatic. Normocephalic. EYES: Pupils equal and round. No scleral icterus. No injection or drainage. ENT: No nasal bleeding or discharge. Mucous membranes pink and moist. NECK: Trachea midline. No JVD. CARDIOVASCULAR: Regular rate and rhythm. No murmur appreciated. RESPIRATORY: No accessory muscle use. Clear to auscultation. Breath sounds equal bilaterally. GASTROINTESTINAL: Abdomen soft, increased tenderness to RLQ with guarding, nondistended. Hepatic and splenic margins not palpable. MUSCULOSKELETAL: No obvious deformities. No clubbing. No cyanosis. No edema. NEUROLOGICAL: Awake and alert. No obvious cranial nerve deficits. Motor grossly within normal limits. Normal speech. PSYCHIATRIC: Appropriate mood and affect; insight and judgment normal. Data Data Last Documented VS Vital Signs Date Time Temp Pulse Resp B/P (MAP) Pulse Ox O2 Delivery O2 Flow Rate FiO2 03/15/18 15:30 18 03/15/18 14:26 98.0 100 156/95 (115) 100 Orders Orders Complete Blood Count With Diff (03/15/18 14:45) Comprehensive Metabolic Panel (03/15/18 14:45) Lipase (03/15/18 14:45) Prothrombin Time / Inr (Pt) (03/15/18 14:45) Act Partial Throm Time (Ptt) (03/15/18 14:45) Urinalysis - C+S If Indicated (03/15/18 14:45) Iv Access Insert/Monitor (03/15/18 14:45) Ecg Monitoring (03/15/18 14:45) Oximetry (03/15/18 14:45) NPO (03/15/18 14:45) Morphine Inj (Morphine Inj) (03/15/18 14:45) Ondansetron Inj (Zofran Inj) (03/15/18 14:45) Sodium Chlor 0.9% 1000 Ml Inj (Ns 1000 M (03/15/18 14:45) Sodium Chloride 0.9% Flush (Ns Flush) (03/15/18 14:45) Ed Urine Pregnancytest Poc (03/15/18 14:45) Beta Hcg (Quant/Titer) (03/15/18 15:49) Us Pelvis (Ques Preg/Ectopic) (03/15/18 ) Labs Laboratory Tests Test 03/15/18 13:12 03/15/18 15:12 03/15/18 15:40 Blood Urea Nitrogen 6 MG/DL Creatinine 0.77 MG/DL Random Glucose 106 MG/DL Total Protein 7.5 GM/DL Albumin 3.6 GM/DL Calcium Level 8.5 MG/DL Alkaline Phosphatase 91 U/L Aspartate Amino Transf (AST/SGOT) 13 U/L Alanine Aminotransferase (ALT/SGPT) 18 U/L Total Bilirubin 0.4 MG/DL Sodium Level 139 MEQ/L Potassium Level 3.9 MEQ/L Chloride Level 107 MEQ/L Carbon Dioxide Level 23.4 MEQ/L Anion Gap 9 MEQ/L Estimat Glomerular Filtration Rate 88 ML/MIN Lipase 92 U/L White Blood Count 10.5 TH/MM3 Red Blood Count 4.98 MIL/MM3 Hemoglobin 13.2 GM/DL Hematocrit 39.6 % Mean Corpuscular Volume 79.4 FL Mean Corpuscular Hemoglobin 26.6 PG Mean Corpuscular Hemoglobin Concent 33.5 % Red Cell Distribution Width 15.2 % Platelet Count 326 TH/MM3 Mean Platelet Volume 8.6 FL Neutrophils (%) (Auto) 75.3 % Lymphocytes (%) (Auto) 19.8 % Monocytes (%) (Auto) 3.9 % Eosinophils (%) (Auto) 0.3 % Basophils (%) (Auto) 0.7 % Neutrophils # (Auto) 7.9 TH/MM3 Lymphocytes # (Auto) 2.1 TH/MM3 Monocytes # (Auto) 0.4 TH/MM3 Eosinophils # (Auto) 0.0 TH/MM3 Basophils # (Auto) 0.1 TH/MM3 CBC Comment DIFF FINAL Differential Comment Prothrombin Time 9.9 SEC Prothromb Time International Ratio 1.0 RATIO Activated Partial Thromboplast Time 30.0 SEC MDM Medical Decision Making Medical Screen Exam Complete: Yes Emergency Medical Condition: Yes Medical Record Reviewed: Yes Interpretation(s) Vital Signs Date Time Temp Pulse Resp B/P (MAP) Pulse Ox O2 Delivery O2 Flow Rate FiO2 03/15/18 14:26 98.0 100 18 156/95 (115) 100 Differential Diagnosis appendicitis, ovarian cyst, PID, colitis, uti, kidney stone, pyelonephritis Narrative Course Patient is a 32 year old female who presents to ER with complaints of right lower abdominal pain since 7-8am this morning. Reports that pain has been persistent and unrelenting During the course of the patients emergency department visit, the patients history, examination, and differential diagnosis were reviewed with the patient. The patient was placed on a cardiac tech with oximetry and frequent blood pressure monitoring. The patient had an IV access obtained and blood work sent for analysis. The patient was initially provided IVF, IV morphine for pain, IV zofran. Urine Preg positive, patient with persistent RLQ pain - discussed concern for possible ectopic - pelvic US ordered. Patient unsure how far along as she has had her period every month. She did have her period in February of last month around the same time, reports that she is due for period any day patient signed out to oncoming physician at change of shift Zara Ramos DO March 15, 2018 14:55
[2018-03-15 15:23] LABS: AUTOMATED NEUTROPHIL # 7.9 TH/MM3 (1.8-7.7); BASOPHIL # 0.1 TH/MM3 (0-0.2); BASOPHIL % 0.7 % (0.0-2.0); EOSINOPHIL % 0.3 % (0.0-4.0); HEMATOCRIT 39.6 % (35.0-46.0); HEMOGLOBIN 13.2 GM/DL (11.6-15.3); LYMPH % 19.8 % (9.0-44.0); LYMPHOCYTE # 2.1 TH/MM3 (1.0-4.8); MEAN CELL VOLUME 79.4 FL (80.0-100.0); MEAN CORPUSCULAR HEMOGLOBIN 26.6 PG (27.0-34.0); MEAN CORPUSCULAR HGB CONC 33.5 % (32.0-36.0); MEAN PLATELET VOLUME 8.6 FL (7.0-11.0); MONO % 3.9 % (0.0-8.0); MONOCYTE # 0.4 TH/MM3 (0-0.9); NEUT % 75.3 % (16.0-70.0); PLATELET COUNT 326 TH/MM3 (150-450); RED BLOOD COUNT 4.98 MIL/MM3 (4.00-5.30); RED CELL DISTRIBUTION WIDTH 15.2 % (11.6-17.2); WHITE BLOOD COUNT 10.5 TH/MM3 (4.0-11.0)
[2018-03-15 15:31] LABS: PROTHROMBIN TIME - PATIENT 9.9 SEC (9.8-11.6)
[2018-03-15 15:42] LABS: ALBUMIN 3.6 GM/DL (3.4-5.0); ALT (GPT) 18 U/L (10-53); AST (GOT) 13 U/L (15-37); BICARBONATE 23.4 MEQ/L (21.0-32.0); BLOOD UREA NITROGEN 6 MG/DL (7-18); CALCIUM 8.5 MG/DL (8.5-10.1); CHLORIDE 107 MEQ/L (98-107); CREATININE 0.77 MG/DL (0.50-1.00); GLOMERULAR FILTRATION RATE 88 ML/MIN (>89); GLUCOSE,RANDOM 106 MG/DL (74-106); SODIUM (NA) 139 MEQ/L (136-145)
[2018-03-15 15:44] LABS: ALKALINE PHOSPHATASE 91 U/L (45-117); TOTAL BILIRUBIN ADULT 0.4 MG/DL (0.2-1.0); TOTAL PROTEIN 7.5 GM/DL (6.4-8.2)
[2018-03-15 16:46] LABS: BILIRUBIN, URINE NEG (NEG); BLOOD, URINE NEG (NEG); GLUCOSE,URINE NEG (NEG); KETONE, URINE NEG (NEG); NITRITE,URINE NEG (NEG); SQUAMOUS EPITHELIAL CELL URINE 1 /hpf (0-5); URINE COLOR YELLOW (YELLW/STRAW); URINE LEUKOCYTE ESTERASE NEG (NEG)
--- NOTE | 2018-03-15 17:45 | RADRPT ---
EXAM DATE/TIME: 03/15/2018 16:34 [facility] COMPARISON: No previous studies available for comparison. INDICATIONS : Ectopic. LAB(S): Beta-hC MEDICAL HISTORY : Gallbladder disease. SURGICAL HISTORY : Cholecystectomy. section. Tonsillectomy. ENCOUNTER: Initial ACUITY: 1 day PAIN SCORE: 8/10 LOCATION: Right pelvis MEASUREMENTS: UTERUS: 9.7 x 5.1 x 4.3 cm ENDOMETRIAL STRIPE: 10 mm RIGHT OVARY: 3.7 x 3.2 x 1.8 cm LEFT OVARY: Not visualized. cm FREE FLUID: Yes Cul de sac. CROWN RUMP LENGTH: n/a = WKS DAYS FHR: n/a BPM FINDINGS: UTERUS: A 5.3 mm anechoic sac is seen in the fundal endometrium. No discrete internal architecture is identif ied. This finding may be a early gestational sac however too small for accurate dating. There is smal l nabothian cyst. RIGHT OVARY: Ovary contains no mass or significant cystic lesion. LEFT OVARY: Not seen MISCELLANEOUS: Small volume of free pelvic fluid. CONCLUSION: Likely early gestational sac in the fundal endometrium. Flo Almeida MD on March 15, 2018 at 17:40 Board Certified Radiologist. This report was verified electronically.
--- NOTE | 2018-03-15 17:45 | PD ---
Physical Exam Narrative Received sign out to follow up labs and US 32yo F here with lower abdominal pain mainly on right side today. Pt just found out she is in the ED. Pt has been having vaginal bleeding for 4 days and thought she was on her menstrual period. Labs reviewed, no leukocytosis. H/H normal. bHCG 1917. LFTs normal. Lipase normal. UA negative. Urine positive. US pelvis showed 5.3mm anechoic sac in the fundal endometrium. May be a early gestational sac however too small for accurate dating. Right ovary showed no mass or significant cystic lesion. Blood type is O positive, rhogam not needed. Pt still with right lower abdominal pain so concern for appendicitis so MRI abdomen ordered. MRI abdomen showed edema around a tubular structure extending from the cecum concerning for appendicitis. I discussed with general surgeon on air personality Dr. Bender at 9:43pm and he said to admit her for observation and he will see her if her pain persists or if she have elevated WBC count. Pt is still in a lot of pain but does not want morphine because she is . Pt received acetaminophen. Consult place for general surgery because clinically, I am concern about appendicitis. Will keep pt NPO and admit to medicine. Discussed with Dr. Fishman and accepted to his service. Data Data Last Documented VS Vital Signs Date Time Temp Pulse Resp B/P (MAP) Pulse Ox O2 Delivery O2 Flow Rate FiO2 03/15/18 21:45 83 18 133/66 (88) 98 Room Air 03/15/18 14:26 98.0 Orders Orders Complete Blood Count With Diff (03/15/18 14:45) Comprehensive Metabolic Panel (03/15/18 14:45) Lipase (03/15/18 14:45) Prothrombin Time / Inr (Pt) (03/15/18 14:45) Act Partial Throm Time (Ptt) (03/15/18 14:45) Urinalysis - C+S If Indicated (03/15/18 14:45) Iv Access Insert/Monitor (03/15/18 14:45) Ecg Monitoring (03/15/18 14:45) Oximetry (03/15/18 14:45) NPO (03/15/18 14:45) Morphine Inj (Morphine Inj) (03/15/18 14:45) Ondansetron Inj (Zofran Inj) (03/15/18 14:45) Sodium Chlor 0.9% 1000 Ml Inj (Ns 1000 M (03/15/18 14:45) Sodium Chloride 0.9% Flush (Ns Flush) (03/15/18 14:45) Ed Urine Pregnancytest Poc (03/15/18 14:45) Beta Hcg (Quant/Titer) (03/15/18 15:49) Us Pelvis (Ques Pr/Ect)W Trans (03/15/18 ) Type And Screen (03/15/18 18:10) Mri Abdomen W/O Contrast (03/15/18 ) Metoclopramide Inj (Reglan Inj) (03/15/18 19:00) Acetaminophen (Tylenol) (03/15/18 19:00) Consult General Surgery (03/15/18 ) Admit Order (Ed Use Only) (03/15/18 22:20) Place In Observation (03/15/18 ) Vital Signs (Adult) Q4H (03/15/18 22:16) Diet Npo (03/16/18 Breakfast) Sodium Chlor 0.9% 1000 Ml Inj (Ns 1000 M (03/15/18 22:16) Sodium Chloride 0.9% Flush (Ns Flush) (03/15/18 22:30) Sodium Chloride 0.9% Flush (Ns Flush) (03/16/18 09:00) Comprehensive Metabolic Panel (03/16/18 06:00) Complete Blood Count With Diff (03/16/18 06:00) Case Management Consult (03/15/18 22:16) Scd Bilateral/Knee High ASHLEY.BID (03/15/18 22:16) Naloxone Inj (Narcan Inj) (03/15/18 22:30) Magnesium Hydroxide Liq (Milk Of Magnesi (03/15/18 22:30) Sennosides (Senokot) (03/15/18 22:30) Bisacodyl Supp (Dulcolax Supp) (03/15/18 22:30) Lactulose Liq (Lactulose Liq) (03/15/18 22:30) Labs Laboratory Tests Test 03/15/18 13:12 03/15/18 15:12 03/15/18 15:40 Blood Urea Nitrogen 6 MG/DL Creatinine 0.77 MG/DL Random Glucose 106 MG/DL Total Protein 7.5 GM/DL Albumin 3.6 GM/DL Calcium Level 8.5 MG/DL Alkaline Phosphatase 91 U/L Aspartate Amino Transf (AST/SGOT) 13 U/L Alanine Aminotransferase (ALT/SGPT) 18 U/L Total Bilirubin 0.4 MG/DL Sodium Level 139 MEQ/L Potassium Level 3.9 MEQ/L Chloride Level 107 MEQ/L Carbon Dioxide Level 23.4 MEQ/L Anion Gap 9 MEQ/L Estimat Glomerular Filtration Rate 88 ML/MIN Lipase 92 U/L Human Chorionic Gonadotropin, Quant 1917 MIU/ML White Blood Count 10.5 TH/MM3 Red Blood Count 4.98 MIL/MM3 Hemoglobin 13.2 GM/DL Hematocrit 39.6 % Mean Corpuscular Volume 79.4 FL Mean Corpuscular Hemoglobin 26.6 PG Mean Corpuscular Hemoglobin Concent 33.5 % Red Cell Distribution Width 15.2 % Platelet Count 326 TH/MM3 Mean Platelet Volume 8.6 FL Neutrophils (%) (Auto) 75.3 % Lymphocytes (%) (Auto) 19.8 % Monocytes (%) (Auto) 3.9 % Eosinophils (%) (Auto) 0.3 % Basophils (%) (Auto) 0.7 % Neutrophils # (Auto) 7.9 TH/MM3 Lymphocytes # (Auto) 2.1 TH/MM3 Monocytes # (Auto) 0.4 TH/MM3 Eosinophils # (Auto) 0.0 TH/MM3 Basophils # (Auto) 0.1 TH/MM3 CBC Comment DIFF FINAL Differential Comment Prothrombin Time 9.9 SEC Prothromb Time International Ratio 1.0 RATIO Activated Partial Thromboplast Time 30.0 SEC Urine Color YELLOW Urine Turbidity CLEAR Urine pH 6.0 Urine Specific [place] 1.014 Urine Protein NEG mg/dL Urine Glucose (UA) NEG mg/dL Urine Ketones NEG mg/dL Urine Occult Blood NEG Urine Nitrite NEG Urine Bilirubin NEG Urine Urobilinogen LESS THAN 2.0 MG/DL Urine Leukocyte Esterase NEG Urine RBC 1 /hpf Urine Squamous Epithelial Cells 1 /hpf Microscopic Urinalysis Comment CULT NOT INDICATED MDM Supervised Visit with LIS: No Diagnosis Primary Impression: Appendicitis Qualified Codes: K35.80 - Unspecified acute appendicitis Admitting Information Admitting Physician Requests: Breanna Grajeda DO March 15, 2018 17:45
[2018-03-15] MEDS ORDERED: METOCLOPRAMIDE INJ 10 MG in SODIUM CHLORIDE 0.9% INJ 50 ML IV ONE (19:00)
[2018-03-15] MEDS ORDERED: ACETAMINOPHEN 325 MG TAB PO ONE (19:00)
[2018-03-15 19:54] VITALS: PULSE 85; RESP 18; O2SAT 97
--- NOTE | 2018-03-15 21:22 | RADRPT ---
EXAM DATE/TIME: 03/15/2018 20:30 This report includes an Addendum and supersedes previous reports for this exam. [facility] COMPARISON: No previous studies available for comparison. INDICATIONS : Pain. MEDICAL HISTORY : None. SURGICAL HISTORY : Tonsillectomy.Cholecystectomy. section ENCOUNTER: Initial ACUITY: 1 day PAIN SCORE: 6/10 LOCATION: Abdomen TECHNIQUE: Multiplanar, multisequence magnetic resonance imaging of the abdomen was performed without contrast. FINDINGS: There is a elongated tubular structure seen off the inferior aspect of the cecum extending inferiorly and anteriorly into the pelvis with surrounding edema. This measures 8 mm in diameter. This is griselda rning for appendicitis. There is a 1.2 cm cystic structure within the endometrium consistent with a gestational sac given the patient is . There is a 2 cm left ovarian cyst likely related to corpus luteal cyst. There i s mild amount of free fluid seen in the cul-de-sac. CONCLUSION: 1. Edema around a tubular structure extending from the cecum concerning for appendicitis. 2. Small 1.2 cm gestational sac and a 2 cm left corpus luteal cyst. Flo Orourke MD on March 15, 2018 at 21:15 Board Certified Radiologist. This report was verified electronically. ADDENDUM: COMPARISON: US PELVIS (QUEST PREG/ECTOPIC) W/TRANSVAG, March 15, 2018, 16:34. I have reviewed this case. I discussed the case with the surgeon. There does appear to be some fluid around a tubular structure in the right lower quadrant inferior to the cecum. There is some free flui d in the pelvis. The edema around the tubular structure in the right lower quadrant appears fairly lo calized which suggest this is more likely related to the bowel as opposed to some free fluid extendin g superiorly. There is free fluid in the cul-de-sac. The right ovary appears adjacent to this tubular structure. If this tubular structure represents the appendix, it is extremely elongated. Given the l ength of the tubular structures, segments of small bowel would more likely have this appearance howev er, the tubular structure cannot clearly be connected to the remaining aspect of the small bowel. Thi s suggests despite its length, this may be the appendix. This tubular structure only measures 8 mm in diameter which is not significantly distended. No fluid is seen within the lumen. The tubular struct ure also appears likely too elongated to represent a fallopian tube. One should confirm that the cyst ic area within the endometrial cavity truly represents a gestational sac with an embryonic pole and y olk sac. These structures cannot be seen on the MRI examination. The patient had pelvic ultrasound ex amination performed earlier. There is a questionable yolk sac barely seen on some of the images. If t here is not clinical suspicion for appendicitis, all these findings should be followed very closely. Follow pelvic ultrasound and MRI examinations can be performed as clinically needed. Flo Orourke MD on March 15, 2018 at 23:06 Board Certified Radiologist. This report was verified electronically.
[2018-03-15 21:45] VITALS: BP 133/66; PULSE 83; RESP 18; O2SAT 98
[2018-03-15] MEDS ORDERED: LACTULOSE SYRUP 20 GM/30 ML CUP PO PRN (22:30)
[2018-03-15] MEDS ORDERED: NALOXONE HCL 0.4 MG/ML AMP IV PUSH PRN (22:30)
[2018-03-15] MEDS ORDERED: SENNOSIDES 8.6 MG TAB PO PRN (22:30)
[2018-03-15] MEDS ORDERED: MAGNESIUM HYDROXIDE SUSP 30 ML CUP PO PRN (22:30)
[2018-03-15] MEDS ORDERED: BISACODYL 10 MG SUPP RECTAL PRN (22:30)
--- NOTE | 2018-03-15 23:16 | HHI.HP ---
[facility] Primary Care Physician No Primary Care Physician Admission Diagnosis Appendicitis Diagnoses: Chief Complaint: right lower abdominal pain Travel History International Travel<30 Days: No Contact w/Intl Traveler <30 Da: No Traveled to Known Affected Are: No History of Present Illness 32 y/o female with no medical history presented to the ED with complaints of right lower abdominal pain. Patient states the pain is a sharp stabbing, 10/10 pain to right lower abdomen with radiation to her back with associated nausea, worse with movement and better with pain medication. She denies any chest pain, sob, fever or chills. Review of Systems Except as stated in HPI: all other systems reviewed are Neg Past Family Social History Past Medical History Patient denies any medical history Past Surgical History Cholecystectomy Tonsillectomy C section Reported Medications Reported Meds & Active Scripts Active Allergies: Coded Allergies: No Known Allergies (Unverified Allergy, Unknown, 03/15/18) Active Ordered Medications Current Medications Medications (Trade) Dose Ordered Sig/Lino Route Start Time Stop Time Status Last Admin (NS Flush) 2 ml UNSCH PRN IV FLUSH 03/15/18 22:30 (NS Flush) 2 ml BID IV FLUSH 03/16/18 09:00 (Narcan Inj) 0.4 mg UNSCH PRN IV PUSH 03/15/18 22:30 (Milk Of Magnesia Liq) 30 ml Q12H PRN PO 03/15/18 22:30 (Senokot) 17.2 mg Q12H PRN PO 03/15/18 22:30 (Dulcolax Supp) 10 mg DAILY PRN RECTAL 03/15/18 22:30 (Lactulose Liq) 30 ml DAILY PRN PO 03/15/18 22:30 (Zofran Odt) 4 mg Q4H PRN SL 03/15/18 23:30 (Morphine Inj) 2 mg Q3H PRN IV PUSH 03/15/18 23:45 Dextrose/Sodium Chloride 1,000 ml @ 100 mls/hr Q10H IV 03/15/18 23:45 Family History Dad: DM Social History Tobacco use: 1/2 PPD Alcohol use: Denies Physical Exam Vital Signs Vital Signs Date Time Temp Pulse Resp B/P (MAP) Pulse Ox O2 Delivery O2 Flow Rate FiO2 03/15/18 23:07 03/15/18 21:45 83 18 133/66 (88) 98 Room Air 03/15/18 20:15 18 03/15/18 19:54 85 18 97 Room Air 03/15/18 15:30 18 03/15/18 14:26 98.0 100 18 156/95 (115) 100 Physical Exam GENERAL: This is a well-nourished, well-developed patient, in no apparent distress. SKIN: No rashes, ecchymoses or lesions. Cool and dry. HEAD: Atraumatic. Normocephalic. No temporal or scalp tenderness. EYES: Pupils equal round and reactive. CARDIOVASCULAR: Regular rate and rhythm without murmurs, gallops, or rubs. RESPIRATORY: Clear to auscultation. Breath sounds equal bilaterally. No wheezes , rales, or rhonchi. GASTROINTESTINAL: Abdomen soft, right lower quadrant tenderness. No guarding. MUSCULOSKELETAL: Extremities without clubbing, cyanosis, or edema No calf tenderness. NEUROLOGICAL: Awake and alert. Motor and sensory grossly within normal limits. Normal speech. Laboratory Laboratory Tests Test 03/15/18 13:12 03/15/18 15:12 03/15/18 15:40 Blood Urea Nitrogen 6 Creatinine 0.77 Random Glucose 106 Total Protein 7.5 Albumin 3.6 Calcium Level 8.5 Alkaline Phosphatase 91 Aspartate Amino Transf (AST/SGOT) 13 Alanine Aminotransferase (ALT/SGPT) 18 Total Bilirubin 0.4 Sodium Level 139 Potassium Level 3.9 Chloride Level 107 Carbon Dioxide Level 23.4 Anion Gap 9 Estimat Glomerular Filtration Rate 88 Lipase 92 Human Chorionic Gonadotropin, Quant 1917 White Blood Count 10.5 Red Blood Count 4.98 Hemoglobin 13.2 Hematocrit 39.6 Mean Corpuscular Volume 79.4 Mean Corpuscular Hemoglobin 26.6 Mean Corpuscular Hemoglobin Concent 33.5 Red Cell Distribution Width 15.2 Platelet Count 326 Mean Platelet Volume 8.6 Neutrophils (%) (Auto) 75.3 Lymphocytes (%) (Auto) 19.8 Monocytes (%) (Auto) 3.9 Eosinophils (%) (Auto) 0.3 Basophils (%) (Auto) 0.7 Neutrophils # (Auto) 7.9 Lymphocytes # (Auto) 2.1 Monocytes # (Auto) 0.4 Eosinophils # (Auto) 0.0 Basophils # (Auto) 0.1 CBC Comment DIFF FINAL Differential Comment Prothrombin Time 9.9 Prothromb Time International Ratio 1.0 Activated Partial Thromboplast Time 30.0 Urine Color YELLOW Urine Turbidity CLEAR Urine pH 6.0 Urine Specific [place] 1.014 Urine Protein NEG Urine Glucose (UA) NEG Urine Ketones NEG Urine Occult Blood NEG Urine Nitrite NEG Urine Bilirubin NEG Urine Urobilinogen LESS THAN 2.0 Urine Leukocyte Esterase NEG Urine RBC 1 Urine Squamous Epithelial Cells 1 Microscopic Urinalysis Comment CULT NOT INDICATED Result Diagram: 03/15/18 1512 03/15/18 1312 Imaging Last Impressions Pelvis Ultrasound 03/15/18 0000 Signed Impressions: Service Date/Time: Thursday, March 15, 2018 16:34 - CONCLUSION: Likely early gestational sac in the fundal endometrium. Flo Almeida MD Abdomen MRI 03/15/18 0000 Signed Impressions: Service Date/Time: Thursday, March 15, 2018 20:30 - CONCLUSION: 1. Edema around a tubular structure extending from the cecum concerning for appendicitis. 2. Small 1.2 cm gestational sac and a 2 cm left corpus luteal cyst. Flo Ororuke MD ADDENDUM: COMPARISON: US PELVIS (QUEST PREG/ECTOPIC) W/TRANSVAG, March 15, 2018, 16:34. I have reviewed this case. I discussed the case with the surgeon. There does appear to be some fluid around a tubular structure in the right lower quadrant inferior to the cecum. There is some free fluid in the pelvis. The edema around the tubular structure in the right lower quadrant appears fairly localized which suggest this is more likely related to the bowel as opposed to some free fluid extending superiorly. There is free fluid in the cul-de-sac. The right ovary appears adjacent to this tubular structure. If this tubular structure represents the appendix, it is extremely elongated. Given the length of the tubular structures, segments of small bowel would more likely have this appearance however, the tubular structure cannot clearly be connected to the remaining aspect of the small bowel. This suggests despite its length, this may be the appendix. This tubular structure only measures 8 mm in diameter which is not significantly distended. No fluid is seen within the lumen. The tubular structure also appears likely too elongated to represent a fallopian tube. One should confirm that the cystic area within the endometrial cavity truly represents a gestational sac with an embryonic pole and yolk sac. These structures cannot be seen on the MRI examination. The patient had pelvic ultrasound examination performed earlier. There is a questionable yolk sac barely seen on some of the images. If there is not clinical suspicion for appendicitis, all these findings should be followed very closely. Follow pelvic ultrasound and MRI examinations can be performed as clinically needed. Flo Orourke MD Caprini VTE Risk Assessment Caprini VTE Risk Assessment: No/Low Risk (score <= 1) Caprini Risk Assessment Model Point Value = 1 Point Value = 2 Point Value = 3 Point Value = 5 Age 41-60 Minor surgery BMI > 25 kg/m2 Swollen legs Varicose veins or History of unexplained or recurrent spontaneous Oral contraceptives or hormone replacement Sepsis (< 1 month) Serious lung disease, including pneumonia (< 1 month) Abnormal pulmonary function Acute myocardial infarction Congestive heart failure (< 1 month) History of inflammatory bowel disease Medical patient at bed rest Age 61-74 Arthroscopic surgery Major open surgery (> 45 min) Laparoscopic surgery (> 45 min) Malignancy Confined to bed (> 72 hours) Immobilizing plaster cast Central venous access Age >= 75 History of VTE Family history of VTE Factor V Leiden Prothrombin [id number] Lupus anticoagulant Anticardiolipin antibodies Elevated serum homocysteine Heparin-induced thrombocytopenia Other congenital or acquired thrombophilia Stroke (< 1 month) Elective arthroplasty Hip, pelvis, or leg fracture Acute spinal cord injury (< 1 month) Prophylaxis Regimen Total Risk Factor Score Risk Level Prophylaxis Regimen 0-1 Low Early ambulation 2 Moderate Order ONE of the following: *Sequential Compression Device (SCD) *Heparin 5000 units SQ BID 3-4 Higher Order ONE of the following medications: *Heparin 5000 units SQ TID *Enoxaparin/Lovenox 40 mg SQ daily (WT < 150 kg, CrCl > 30 mL/min) *Enoxaparin/Lovenox 30 mg SQ daily (WT < 150 kg, CrCl > 10-29 mL/min) *Enoxaparin/Lovenox 30 mg SQ BID (WT < 150 kg, CrCl > 30 mL/min) AND/OR *Sequential Compression Device (SCD) 5 or more Highest Order ONE of the following medications: *Heparin 5000 units SQ TID (Preferred with Epidurals) *Enoxaparin/Lovenox 40 mg SQ daily (WT < 150 kg, CrCl > 30 mL/min) *Enoxaparin/Lovenox 30 mg SQ daily (WT < 150 kg, CrCl > 10-29 mL/min) *Enoxaparin/Lovenox 30 mg SQ BID (WT < 150 kg, CrCl > 30 mL/min) AND *Sequential Compression Device (SCD) Assessment and Plan Problem List: (1) Appendicitis ICD Code: K37 - Unspecified appendicitis Status: Acute Assessment and Plan 32 y/o female with no medical history presented to the ED with complaints of right lower abdominal pain Appendicitis Abdomen MRI reviewed and shows edema around a tubular structure extending from the cecum concerning for appendicitis -NPO, IVF for hydration -Consult general surgery -Zofran for nausea -Pain medication IV morphine Intrauterine , discovered this admission HCG 1916 -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
[2018-03-15 23:27] VITALS: BP 135/79; PULSE 87; RESP 16; TEMP 98.1; O2SAT 97
[2018-03-15] MEDS ORDERED: oxyCODONE/ACETAMINOPHEN 5 MG/325 MG TAB PO ONE (23:30)
[2018-03-15] MEDS ORDERED: DEXT 5%-NACL 0.45% 1000 ML INJ 1,000 ML IV SCH (23:45)
[2018-03-16] MEDS: ONDANSETRON ODT 4 MG TAB SL PRN ×3 (01:41→23:52)
[2018-03-16] MEDS: MORPHINE SULFATE 4 MG/ML INJ IV PUSH PRN ×6 (01:42→23:52)
[2018-03-16 03:57] VITALS: BP 117/64; PULSE 77; RESP 16; TEMP 98.1; O2SAT 99
[2018-03-16 04:37] LABS: AUTOMATED NEUTROPHIL # 5.1 TH/MM3 (1.8-7.7); BASOPHIL % 0.6 % (0.0-2.0); EOSINOPHIL # 0.1 TH/MM3 (0-0.4); EOSINOPHIL % 0.7 % (0.0-4.0); HEMATOCRIT 35.7 % (35.0-46.0); HEMOGLOBIN 11.8 GM/DL (11.6-15.3); LYMPH % 31.4 % (9.0-44.0); LYMPHOCYTE # 2.6 TH/MM3 (1.0-4.8); MEAN CELL VOLUME 79.5 FL (80.0-100.0); MEAN CORPUSCULAR HEMOGLOBIN 26.2 PG (27.0-34.0); MEAN PLATELET VOLUME 8.8 FL (7.0-11.0); MONO % 4.1 % (0.0-8.0); MONOCYTE # 0.3 TH/MM3 (0-0.9); NEUT % 63.2 % (16.0-70.0); PLATELET COUNT 276 TH/MM3 (150-450); RED BLOOD COUNT 4.49 MIL/MM3 (4.00-5.30); RED CELL DISTRIBUTION WIDTH 15.3 % (11.6-17.2); WHITE BLOOD COUNT 8.1 TH/MM3 (4.0-11.0)
[2018-03-16 05:10] LABS: ALKALINE PHOSPHATASE 100 U/L (45-117); ALT (GPT) 73 U/L (10-53); AST (GOT) 96 U/L (15-37); BICARBONATE 22.9 MEQ/L (21.0-32.0); BLOOD UREA NITROGEN 6 MG/DL (7-18); CALCIUM 7.9 MG/DL (8.5-10.1); CHLORIDE 110 MEQ/L (98-107); CREATININE 0.74 MG/DL (0.50-1.00); GLOMERULAR FILTRATION RATE 92 ML/MIN (>89); GLUCOSE,RANDOM 97 MG/DL (74-106); SODIUM (NA) 141 MEQ/L (136-145); TOTAL BILIRUBIN ADULT 0.8 MG/DL (0.2-1.0); TOTAL PROTEIN 6.3 GM/DL (6.4-8.2)
[2018-03-16 07:54] VITALS: BP 129/63; PULSE 73; RESP 16; TEMP 98.7; O2SAT 98
[2018-03-16] MEDS: SODIUM CHLORIDE 0.9% FLUSH 10 ML FLUSH IV FLUSH SCH ×2 (09:00→22:52)
--- NOTE | 2018-03-16 10:45 | HHI.PR ---
Subjective Remarks Follow-up right lower quadrant abdominal pain March 16, 2018-patient seen and examined, still complains of right lower quadrant abdominal pain. Patient is now aware of the fact that her hCG was positive for and states she is having some light vaginal bleeding that has heavy as a regular menses. Currently afebrile. Case discussed with KRYSTINA Bagley Objective Vitals Vital Signs Date Time Temp Pulse Resp B/P (MAP) Pulse Ox O2 Delivery O2 Flow Rate FiO2 03/16/18 07:54 98.7 73 16 129/63 (85) 98 03/16/18 03:57 98.1 77 16 117/64 (81) 99 03/15/18 23:27 98.1 87 16 135/79 (97) 97 03/15/18 23:07 03/15/18 21:45 83 18 133/66 (88) 98 Room Air 03/15/18 20:15 18 03/15/18 19:54 85 18 97 Room Air 03/15/18 15:30 18 03/15/18 14:26 98.0 100 18 156/95 (115) 100 I/O 03/15/18 03/15/18 03/15/18 03/16/18 03/16/18 03/16/18 07:00 15:00 23:00 07:00 15:00 23:00 Intake Total 1052 ml Balance 1052 ml Intake IV Total 1052 ml # Voids 2 Result Diagram: 03/16/18 0355 03/16/18 0355 Imaging Last Impressions Pelvis Ultrasound 03/15/18 0000 Signed Impressions: Service Date/Time: Thursday, March 15, 2018 16:34 - CONCLUSION: Likely early gestational sac in the fundal endometrium. Flo Almeida MD Abdomen MRI 03/15/18 0000 Signed Impressions: Service Date/Time: Thursday, March 15, 2018 20:30 - CONCLUSION: 1. Edema around a tubular structure extending from the cecum concerning for appendicitis. 2. Small 1.2 cm gestational sac and a 2 cm left corpus luteal cyst. Flo Orourke MD ADDENDUM: COMPARISON: US PELVIS (QUEST PREG/ECTOPIC) W/TRANSVAG, March 15, 2018, 16:34. I have reviewed this case. I discussed the case with the surgeon. There does appear to be some fluid around a tubular structure in the right lower quadrant inferior to the cecum. There is some free fluid in the pelvis. The edema around the tubular structure in the right lower quadrant appears fairly localized which suggest this is more likely related to the bowel as opposed to some free fluid extending superiorly. There is free fluid in the cul-de-sac. The right ovary appears adjacent to this tubular structure. If this tubular structure represents the appendix, it is extremely elongated. Given the length of the tubular structures, segments of small bowel would more likely have this appearance however, the tubular structure cannot clearly be connected to the remaining aspect of the small bowel. This suggests despite its length, this may be the appendix. This tubular structure only measures 8 mm in diameter which is not significantly distended. No fluid is seen within the lumen. The tubular structure also appears likely too elongated to represent a fallopian tube. One should confirm that the cystic area within the endometrial cavity truly represents a gestational sac with an embryonic pole and yolk sac. These structures cannot be seen on the MRI examination. The patient had pelvic ultrasound examination performed earlier. There is a questionable yolk sac barely seen on some of the images. If there is not clinical suspicion for appendicitis, all these findings should be followed very closely. Follow pelvic ultrasound and MRI examinations can be performed as clinically needed. Flo Orourke MD Objective Remarks GENERAL: NAD SKIN: Warm and dry. HEAD: Normocephalic. EYES: No scleral icterus. No injection or drainage. NECK: Supple, trachea midline. No JVD or lymphadenopathy. CARDIOVASCULAR: Regular rate and rhythm without murmurs, gallops, or rubs. RESPIRATORY: Breath sounds equal bilaterally. No accessory muscle use. GASTROINTESTINAL: Abdomen soft, mildly tender RLQ, nondistended. MUSCULOSKELETAL: No cyanosis, or edema. BACK: Nontender without obvious deformity. No CVA tenderness. A/P Problem List: (1) Intrauterine ICD Code: Z34.90 - Encounter for supervision of normal , unspecified, unspecified trimester (2) Right lower quadrant abdominal pain ICD Code: R10.31 - Right lower quadrant pain Assessment and Plan 32-year-old female with Right lower quadrant abdominal pain Abdomen MRI reviewed and shows edema around a tubular structure extending from the cecum concerning for appendicitis, however pelvic ultrasound noted in review with finding of early gestational sac -Patient currently has no febrile episodes and WBC within normal limit as well as exam unremarkable for appendicitis -General surgery consultation pending -Zofran for nausea -Pain medication IV morphine Appendicitis? awaiting for General surgery evaluation Intrauterine , discovered this admission HCG 1916 -Will need follow up with career counselor outpatient -Pelvic ultrasound noted in review with finding of early gestational sac DVT prophylaxis: Axel Caldera MD March 16, 2018 10:45
--- NOTE | 2018-03-16 10:49 | PD.CONS ---
cc: Sheyla Mckeon MD HPI Service General Surgery Consult Requested By Juliet FLAHERTY Reason for Consult RLQ pain Primary Care Physician No Primary Care Physician History of Present Illness This is a 32 year old female with no significant past medical history who presented to the ED with complaints of RIGHT lower quadrant pain that began yesterday morning. She reports associated nausea without vomiting. She denies any fever or chills. In the ED a test was completed which does confirm . An US of the pelvis was completed which also confirms . An MRI of the abdomen was completed which is shows some mild inflammation in the RLQ without definitive evidence of appendicis. She has a normal WBC. A General Surgery consultation has been requested. Review of Systems Constitutional: DENIES: Fatigue, Chills, Change in appetite Endocrine: DENIES: Polydipsia, Polyuria, Polyphagia Eyes: DENIES: Diplopia, Eye inflammation Ears, nose, mouth, throat: DENIES: Hearing loss Respiratory: DENIES: Apneas Cardiovascular: DENIES: Chest pain Gastrointestinal: COMPLAINS OF: Abdominal pain, Nausea, DENIES: Vomiting Genitourinary: DENIES: Urinary frequency Musculoskeletal: DENIES: Joint pain Integumentary: DENIES: Abnormal pigmentation Hematologic/lymphatic: DENIES: Bruising Immunologic/allergic: DENIES: Eczema Neurologic: DENIES: Headache, Localized weakness Psychiatric: DENIES: Confusion, Mood changes, Depression Past Family Social History Past Medical History None Past Surgical History Laparoscopic cholecystectomy Tonsillectomy Reported Medications None Allergies: Coded Allergies: No Known Allergies (Unverified Allergy, Unknown, 03/15/18) Active Ordered Medications Current Medications Medications (Trade) Dose Ordered Sig/Lino Route Start Time Stop Time Status Last Admin (NS Flush) 2 ml UNSCH PRN IV FLUSH 03/15/18 22:30 (NS Flush) 2 ml BID IV FLUSH 03/16/18 09:00 03/16/18 09:00 (Narcan Inj) 0.4 mg UNSCH PRN IV PUSH 03/15/18 22:30 (Milk Of Magnesia Liq) 30 ml Q12H PRN PO 03/15/18 22:30 (Senokot) 17.2 mg Q12H PRN PO 03/15/18 22:30 (Dulcolax Supp) 10 mg DAILY PRN RECTAL 03/15/18 22:30 (Lactulose Liq) 30 ml DAILY PRN PO 03/15/18 22:30 (Zofran Odt) 4 mg Q4H PRN SL 03/15/18 23:30 03/16/18 09:57 (Morphine Inj) 2 mg Q3H PRN IV PUSH 03/15/18 23:45 03/16/18 10:06 Dextrose/Sodium Chloride 1,000 ml @ 100 mls/hr Q10H IV 03/15/18 23:45 03/15/18 23:54 Family History Non contributory Social History + tobacco use---1/2 ppd Denies ETOH use Denies illicit drug use She has a a 7 year old daughter; her birthday is [birth year]. Physical Exam Vital Signs Vital Signs Date Time Temp Pulse Resp B/P (MAP) Pulse Ox O2 Delivery O2 Flow Rate FiO2 03/16/18 07:54 98.7 73 16 129/63 (85) 98 03/16/18 03:57 98.1 77 16 117/64 (81) 99 03/15/18 23:27 98.1 87 16 135/79 (97) 97 03/15/18 23:07 03/15/18 21:45 83 18 133/66 (88) 98 Room Air 03/15/18 20:15 18 03/15/18 19:54 85 18 97 Room Air 03/15/18 15:30 18 03/15/18 14:26 98.0 100 18 156/95 (115) 100 Physical Exam GENERAL: 32 year old female resting in bed in no acute distress. SKIN: Warm and dry. HEAD: Atraumatic. Normocephalic. EYES: Pupils equal and round. No scleral icterus. No injection or drainage. ENT: No nasal bleeding or discharge. Mucous membranes pink and moist. NECK: Trachea midline. CARDIOVASCULAR: Regular rate and rhythm. RESPIRATORY: No accessory muscle use. Clear to auscultation. Breath sounds equal bilaterally. GASTROINTESTINAL: Abdomen soft, obese abdomen. Faint laparoscopic scars notes. RLQ tenderness with palpation. MUSCULOSKELETAL: Extremities without clubbing, cyanosis, or edema. No obvious deformities. NEUROLOGICAL: Awake and alert. No obvious cranial nerve deficits. Motor grossly within normal limits. Five out of 5 muscle strength in the arms and legs. Normal speech. PSYCHIATRIC: Appropriate mood and affect; insight and judgment normal. Laboratory Laboratory Tests Test 03/15/18 13:12 03/15/18 15:12 03/15/18 15:40 03/16/18 03:55 Blood Urea Nitrogen 6 6 Creatinine 0.77 0.74 Random Glucose 106 97 Total Protein 7.5 6.3 Albumin 3.6 3.0 Calcium Level 8.5 7.9 Alkaline Phosphatase 91 100 Aspartate Amino Transf (AST/SGOT) 13 96 Alanine Aminotransferase (ALT/SGPT) 18 73 Total Bilirubin 0.4 0.8 Sodium Level 139 141 Potassium Level 3.9 3.7 Chloride Level 107 110 Carbon Dioxide Level 23.4 22.9 Anion Gap 9 8 Estimat Glomerular Filtration Rate 88 92 Lipase 92 Human Chorionic Gonadotropin, Quant 1917 White Blood Count 10.5 8.1 Red Blood Count 4.98 4.49 Hemoglobin 13.2 11.8 Hematocrit 39.6 35.7 Mean Corpuscular Volume 79.4 79.5 Mean Corpuscular Hemoglobin 26.6 26.2 Mean Corpuscular Hemoglobin Concent 33.5 33.0 Red Cell Distribution Width 15.2 15.3 Platelet Count 326 276 Mean Platelet Volume 8.6 8.8 Neutrophils (%) (Auto) 75.3 63.2 Lymphocytes (%) (Auto) 19.8 31.4 Monocytes (%) (Auto) 3.9 4.1 Eosinophils (%) (Auto) 0.3 0.7 Basophils (%) (Auto) 0.7 0.6 Neutrophils # (Auto) 7.9 5.1 Lymphocytes # (Auto) 2.1 2.6 Monocytes # (Auto) 0.4 0.3 Eosinophils # (Auto) 0.0 0.1 Basophils # (Auto) 0.1 0.0 CBC Comment DIFF FINAL DIFF FINAL Differential Comment Prothrombin Time 9.9 Prothromb Time International Ratio 1.0 Activated Partial Thromboplast Time 30.0 Urine Color YELLOW Urine Turbidity CLEAR Urine pH 6.0 Urine Specific [place] 1.014 Urine Protein NEG Urine Glucose (UA) NEG Urine Ketones NEG Urine Occult Blood NEG Urine Nitrite NEG Urine Bilirubin NEG Urine Urobilinogen LESS THAN 2.0 Urine Leukocyte Esterase NEG Urine RBC 1 Urine Squamous Epithelial Cells 1 Microscopic Urinalysis Comment CULT NOT INDICATED Result Diagram: 03/16/18 0355 03/16/18 0355 Imaging Last 48 hours Impressions Pelvis Ultrasound 03/15/18 0000 Signed Impressions: Service Date/Time: Thursday, March 15, 2018 16:34 - CONCLUSION: Likely early gestational sac in the fundal endometrium. Flo Almeida MD Abdomen MRI 03/15/18 0000 Signed Impressions: Service Date/Time: Thursday, March 15, 2018 20:30 - CONCLUSION: 1. Edema around a tubular structure extending from the cecum concerning for appendicitis. 2. Small 1.2 cm gestational sac and a 2 cm left corpus luteal cyst. Flo Orourke MD ADDENDUM: COMPARISON: US PELVIS (QUEST PREG/ECTOPIC) W/TRANSVAG, March 15, 2018, 16:34. I have reviewed this case. I discussed the case with the surgeon. There does appear to be some fluid around a tubular structure in the right lower quadrant inferior to the cecum. There is some free fluid in the pelvis. The edema around the tubular structure in the right lower quadrant appears fairly localized which suggest this is more likely related to the bowel as opposed to some free fluid extending superiorly. There is free fluid in the cul-de-sac. The right ovary appears adjacent to this tubular structure. If this tubular structure represents the appendix, it is extremely elongated. Given the length of the tubular structures, segments of small bowel would more likely have this appearance however, the tubular structure cannot clearly be connected to the remaining aspect of the small bowel. This suggests despite its length, this may be the appendix. This tubular structure only measures 8 mm in diameter which is not significantly distended. No fluid is seen within the lumen. The tubular structure also appears likely too elongated to represent a fallopian tube. One should confirm that the cystic area within the endometrial cavity truly represents a gestational sac with an embryonic pole and yolk sac. These structures cannot be seen on the MRI examination. The patient had pelvic ultrasound examination performed earlier. There is a questionable yolk sac barely seen on some of the images. If there is not clinical suspicion for appendicitis, all these findings should be followed very closely. Follow pelvic ultrasound and MRI examinations can be performed as clinically needed. Flo Orourke MD Assessment and Plan Assessment and Plan 32 year old female with RLQ tenderness; 1st trimeter -MRI reviewed--- no clear findings of appendicitis; WBC normal -Discussed the option of conservative management vs surgical management -Patient has decided to proceed with surgery---discussed procedure in detail; discussed possible injury to fetus including demise. -Patient understands risks associated with a surgery during the 1st trimester of -Discussed with Dr. Schmitt and Robin FLAHERTY -Will plan for laparoscopic appendectomy this afternoon -Consents on chart -Thank you for this consult PATIENT SEEN AND EXAMINED WITH KRYSTINA WHO DOCUMENTED OUR VISIT. DOUBT APPENDICITIS WITH 7MM APPENDIX AND NORMAL WBC. OFFERED OBSERVATION VS LAPAROSCOPY. PATIENT REQUESTS LAPAROSOCOPY FOR PERSISTANT PAIN. IMAGING REVIEWED. OR NOTIFIED. SHEYLA MCKEON MD FACS Discussed Condition With Dr. Yulia FLAHERTY Ms. Muhammad + family at bedside Mackenzie Montoya/Incident Manager KRYSTINA March 16, 2018 10:49 Sheyla Mckeon MD March 22, 2018 11:19
[2018-03-16] MEDS ORDERED: ePHEDrine/NS 25 MG/5 ML SYRINGE IV ONE (12:00)
[2018-03-16] MEDS ORDERED: ONDANSETRON HCL 4 MG/2 ML VIAL IV PUSH ONE (12:00)
[2018-03-16] MEDS ORDERED: LACTATED RINGER'S 1000 ML INJ 1,000 ML IV ONE (12:00)
[2018-03-16] MEDS ORDERED: ceFAZolin INJ 1,000 MG VIAL IV ONE (12:00)
[2018-03-16] MEDS ORDERED: PROPOFOL 200 MG/20 ML AMP IV ONE (12:00)
[2018-03-16] MEDS ORDERED: GLYCOPYRROLATE 1 MG/5 ML SYRINGE IV PUSH ONE (12:00)
[2018-03-16] MEDS ORDERED: NEOSTIGMINE 5 MG/5 ML SYRINGE IV PUSH ONE (12:00)
[2018-03-16] MEDS ORDERED: DEXAMETHASONE SOD PHOS 4 MG/ML VIAL IV ONE (12:00)
[2018-03-16] MEDS ORDERED: KETOROLAC TROMETHAMINE 30 MG/ML (IVP) VIAL IV PUSH ONE ×2 (12:00→20:30)
[2018-03-16] MEDS ORDERED: ROCURONIUM INJ 50 MG/5 ML SYRINGE IV PUSH ONE (12:00)
[2018-03-16] MEDS ORDERED: SUCCINYLCHOLINE CHLORIDE 100 MG/5 ML SYRINGE IV PUSH ONE (12:00)
[2018-03-16] MEDS ORDERED: LIDOCAINE HCL 1% PF 5 ML SYRINGE OTHER ONE (12:00)
[2018-03-16 15:12] VITALS: BP 165/74; PULSE 105; RESP 16; TEMP 98.1; O2SAT 96
[2018-03-16] MEDS ORDERED: BUPIVACAINE/EPINEPHRINE 0.5% PF 10 ML VIAL ONE (16:25)
[2018-03-16] MEDS ORDERED: CHLORHEXIDINE GLUCONATE 2 % 1 PACK (2 CLOTHS) TOPICAL PRN (16:45)
[2018-03-16] MEDS ORDERED: LACTATED RINGER'S 1000 ML IV PRN (16:45)
[2018-03-16] MEDS ORDERED: SODIUM CHLORID 0.9% 500 ML IV PRN (16:45)
[2018-03-16] MEDS ORDERED: POVIDONE IODINE 5% (ANTISEPSIS KIT) 4 APPLICATIONS EACH NARE PRN (16:45)
[2018-03-16] MEDS ORDERED: METOPROLOL TARTRATE 25 MG TAB PO PRN (16:45)
[2018-03-16] MEDS ORDERED: ACETAMINOPHEN 1000 MG/100 ML 100 ML IV ONE (17:06)
[2018-03-16] MEDS ORDERED: metroNIDAZOLE 500 MG INJ 100 ML IV ONE (17:32)
[2018-03-16] MEDS ORDERED: ceFAZolin INJ 1,000 MG VIAL ONE (17:33)
[2018-03-16] MEDS ORDERED: DO NOT ADM ANY ANTICOAGULANT DRUGS PRN (19:07)
[2018-03-16] MEDS ORDERED: *morphine SULFATE 10 MG/ML PERIprocedure ONLY ONE ×2 (19:22→19:42)
[2018-03-16] MEDS ORDERED: oxyCODONE/ACETAMINOPHEN 5 MG/325 MG TAB PO PRN (20:30)
[2018-03-16 20:38] VITALS: BP 131/67; PULSE 119; RESP 16; TEMP 97.4; O2SAT 95
[2018-03-16 23:33] VITALS: BP 135/65; PULSE 78; RESP 16; TEMP 98.3; O2SAT 93
[2018-03-16] MEDS: SODIUM CHLOR 0.9% 1000 ML INJ 1,000 ML IV SCH (23:53)
[2018-03-17 03:37] VITALS: BP 118/69; PULSE 74; RESP 16; TEMP 98.2; O2SAT 95
[2018-03-17] MEDS: SODIUM CHLOR 0.9% 1000 ML INJ 1,000 ML IV SCH (04:30)
[2018-03-17] MEDS: MORPHINE SULFATE 4 MG/ML INJ IV PUSH PRN (05:48)
[2018-03-17 07:51] VITALS: BP 134/77; PULSE 81; RESP 16; TEMP 97.6; O2SAT 95
[2018-03-17] MEDS ORDERED: OXYC1TAB63 PO (08:50)
[2018-03-17] MEDS: SODIUM CHLORIDE 0.9% FLUSH 10 ML FLUSH IV FLUSH SCH (09:00)
--- NOTE | 2018-03-17 09:11 | HHI.PR ---
Subjective Subjective Notes Resting in bed Emotional Objective Vitals/I&O Vital Signs Date Time Temp Pulse Resp B/P (MAP) Pulse Ox O2 Delivery O2 Flow Rate FiO2 03/17/18 07:51 97.6 81 16 134/77 (96) 95 03/16/18 19:45 Nasal Cannula 4 Radiology Last 48 hours Impressions Pelvis Ultrasound 03/15/18 0000 Signed Impressions: Service Date/Time: Thursday, March 15, 2018 16:34 - CONCLUSION: Likely early gestational sac in the fundal endometrium. Flo Almeida MD Abdomen MRI 03/15/18 0000 Signed Impressions: Service Date/Time: Thursday, March 15, 2018 20:30 - CONCLUSION: 1. Edema around a tubular structure extending from the cecum concerning for appendicitis. 2. Small 1.2 cm gestational sac and a 2 cm left corpus luteal cyst. Flo Orourke MD ADDENDUM: COMPARISON: US PELVIS (QUEST PREG/ECTOPIC) W/TRANSVAG, March 15, 2018, 16:34. I have reviewed this case. I discussed the case with the surgeon. There does appear to be some fluid around a tubular structure in the right lower quadrant inferior to the cecum. There is some free fluid in the pelvis. The edema around the tubular structure in the right lower quadrant appears fairly localized which suggest this is more likely related to the bowel as opposed to some free fluid extending superiorly. There is free fluid in the cul-de-sac. The right ovary appears adjacent to this tubular structure. If this tubular structure represents the appendix, it is extremely elongated. Given the length of the tubular structures, segments of small bowel would more likely have this appearance however, the tubular structure cannot clearly be connected to the remaining aspect of the small bowel. This suggests despite its length, this may be the appendix. This tubular structure only measures 8 mm in diameter which is not significantly distended. No fluid is seen within the lumen. The tubular structure also appears likely too elongated to represent a fallopian tube. One should confirm that the cystic area within the endometrial cavity truly represents a gestational sac with an embryonic pole and yolk sac. These structures cannot be seen on the MRI examination. The patient had pelvic ultrasound examination performed earlier. There is a questionable yolk sac barely seen on some of the images. If there is not clinical suspicion for appendicitis, all these findings should be followed very closely. Follow pelvic ultrasound and MRI examinations can be performed as clinically needed. Flo Orourke MD Cardiovascular: Regular Lungs: Clear Abdomen: Non-distended, Other (lap sites c/d/i; minimally tenderness with palpation ) Extremities: No edema A/P Assessment and Plan 32 year old female with RLQ pain; POD1 dx lap; lap appy; lap LEIGH ANN; lap RIGHT salpingectomy due to ectopic -Regular diet -DC IVF -PO pain meds -Recommend follow up with [facility] as outpatient -General Surgery clear for DC ; follow up with Dr. Bender March 28 at 9:50AM -Rx for pain on chart -Discussed with Dr. Schmitt and Mackenzie Ramirez/First Natividad FLAHERTY March 17, 2018 09:11
--- NOTE | 2018-03-17 09:19 | MP ---
cc: Latrice Falk MD DATE OF OPERATION: 03/16/2018 REASON FOR INTRAOPERATIVE CONSULTATION: I was called during her surgery, which was started by Dr. You Bender for a suspected appendicitis, and it turned out that she had a right ectopic with a partial rupture. OPERATIVE NOTE: Upon my arrival to the operating room, the patient had general endotracheal anesthesia applied. She was in the dorsal position. She had 3 trocars placed into her abdomen in the umbilicus and to the left side mid abdomen. Dr. Bender had already removed a normal appearing appendix and had identified a right ectopic . At this time, I came across the broad ligament, the tube and across the tubal connection to the uterus with the Harmonic scalpel without difficulties. I then identified that the left tube and ovary had some adhesions to the left anterior abdominal wall, which I took down using the Harmonic scalpel. I then used the Endo Catch to scoop up the right tube, pull it out through the 10/12 trocar site at the umbilicus. We then irrigated the abdominal pelvic cavity copiously and hemostasis was assured throughout. We then removed all of the instruments, desufflated the abdomen. I closed the umbilical incision with the [address] Bender had already placed in the fascia with good closure. I then closed the skin with a 4-0 Monocryl in a subcuticular fashion. Counts were correct and the patient was stable to the recovery room. Latrice Falk MD CCD/DL , 08:54 AM , 09:18 AM
--- NOTE | 2018-03-17 09:34 | HHI.DCPOC ---
Discharge Care Plan Diagnosis: (1) Intrauterine (2) Appendicitis Your Health Problems Are: Incision/Drains Inflammation Swelling Goals to Promote Your Health * To prevent worsening of your condition and complications * To maintain your health at the optimal level Directions to Meet Your Goals Take your medications as prescribed Follow your dietary instruction Follow activity as directed Keep your appointments as scheduled Take your immunizations and boosters as scheduled If your symptoms worsen call your PCP, if no PCP go to Urgent Care Center or Emergency Room Smoking is Dangerous to Your Health. Avoid second hand smoke Call the 24-hour hour crisis hotline for domestic abuse at Chela Sanchez March 17, 2018 09:34
[2018-03-17] MEDS: ONDANSETRON ODT 4 MG TAB SL PRN (10:11)
--- NOTE | 2018-03-17 10:44 | MP ---
cc: You Bender MD,Breanna Martin,Latrice Quiros MD DATE OF OPERATION: 03/16/2018 PREOPERATIVE DIAGNOSES: 1. Persistent right lower quadrant pain. 2. Abnormal MRI abdomen, concerning for possible appendicitis. 3. Morbid obesity, weight approximately 300 pounds. POSTOPERATIVE DIAGNOSES: 1. Persistent right lower quadrant pain, abnormal MRI abdomen concerning for possible appendicitis. 2. Ectopic right fallopian tube. 3. Normal appendix. 4. Morbid obesity, weight approximately 300 pounds. PROCEDURE PERFORMED: 1. Diagnostic laparoscopy. 2. Evacuation hemoperitoneum. 3. Laparoscopic appendectomy. 4. Laparoscopic salpingectomy by Dr. Latrice Falk (please see her operative note). SURGEON You Bender MD INTRAOPERATIVE CONSULTATION. Dr. Latrice Falk. ANESTHESIA: General endotracheal. ESTIMATED BLOOD LOSS: About 150 mL of blood in the pelvis. INDICATIONS FOR PROCEDURE: Nohelia is a pleasant 32-year-old female who came to the Emergency Department yesterday with complaints of severe right lower quadrant abdominal pain. She was seen and evaluated and admitted for observation. The patient had a normal white count and no fever. She had a beta hCG which was positive for an early . She had an ultrasound which was felt to demonstrate an embryo present within the uterus. She had an MRI which demonstrated a 7-8 mm normal-appearing appendix, but there was an inflammatory reaction noted in the right lower quadrant. The patient was seen in consultation and options were discussed. I advised her I thought that the chance of her having appendicitis was low. However, because her pain persisted, she requested we proceed with diagnostic laparoscopy. DETAILS: The patient was identified, brought to the operating room and placed supine on the operating table. After adequate general endotracheal anesthesia was achieved, the abdomen was prepped and draped in standard surgical fashion. Infraumbilical space anesthetized with 0.25% Marcaine. Infraumbilical incision was made. Dissection was carried down to subcutaneous tissue to midline fascia. Midline fascia was then incised sharply. A finger was then placed in the peritoneal cavity without difficulty. Blunt balloon trocar was inserted, and the abdomen was insufflated to 15 mmHg using CO2 gas. Next, a 30-degree laparoscope was inserted. Immediately, we noted a fair amount of hemoperitoneum down in the pelvis. Two 5 mm trocars were then placed on the lower midline under direct vision after anesthetizing the skin and subcutaneous tissue 0.25% Marcaine. The patient was placed in Trendelenburg position. Suction property accountant was used to remove the hemoperitoneum. Immediately, we identified a thickened right fallopian tube with what appeared to be a blood clot around it. This was suctioned off. Overall, this appeared to be an ectopic . We therefore consulted Dr. Latrice Falk intraoperatively. She stated she would be present in about 10 minutes. Since she was on her way in, I decided to go ahead and remove the patient's appendix to prevent further confusion of the diagnosis. Appendix was seen in the right lower quadrant. Appendix was normal size and caliber. The appendix was then grasped and the harmonic scalpel was used to take down the mesentery. A 2-0 PDS Endoloop was then placed proximally and distally on the appendiceal stump and the appendix was transected with the harmonic scalpel. Appendix was placed into an Endopouch bag and brought out through the infraumbilical port. At this point, Dr. Falk arrived at the operating room. She assumed the operative case. She was going to perform a right salpingo-oophorectomy to remove the ectopic. Please see her operative note for the details. I scrubbed out of the procedure and left the patient under the care of Dr. Falk. MD NEMO Viveros/DAMIEN , 10:15 AM , 10:42 AM
--- NOTE | 2018-03-17 11:02 | HHI.PR ---
Subjective Remarks Follow-up right lower quadrant abdominal pain March 16, 2018-patient seen and examined, still complains of right lower quadrant abdominal pain. Patient is now aware of the fact that her hCG was positive for and states she is having some light vaginal bleeding that has heavy as a regular menses. Currently afebrile. Case discussed with KRYSTINA Bagley March 17, 2028-patient seen and examined,she is POD1 dx lap; lap appy; lap LEIGH ANN; lap RIGHT salpingectomy due to ectopic . Complaint of abdominal pain. Is discussed this morning with both Dr. Bender and Amalia Montoya Objective Vitals Vital Signs Date Time Temp Pulse Resp B/P (MAP) Pulse Ox O2 Delivery O2 Flow Rate FiO2 03/17/18 07:51 97.6 81 16 134/77 (96) 95 03/17/18 03:37 98.2 74 16 118/69 (85) 95 03/16/18 23:52 20 03/16/18 23:33 98.3 78 16 135/65 (88) 93 03/16/18 20:38 97.4 119 16 131/67 (88) 95 03/16/18 19:45 97.7 86 17 122/58 (79) 99 Nasal Cannula 4 03/16/18 19:30 81 17 124/57 (79) 92 Nasal Cannula 4 03/16/18 19:15 75 17 131/63 (85) 92 Nasal Cannula 4 03/16/18 19:06 97.7 121 17 141/76 (97) 99 Nasal Cannula 4 03/16/18 15:12 98.1 105 16 165/74 (104) 96 I/O 03/16/18 03/16/18 03/16/18 03/17/18 03/17/18 03/17/18 07:00 15:00 23:00 07:00 15:00 23:00 Intake Total 1500 ml Output Total 100 ml Balance 1400 ml Other 1500 ml Output Estimated Blood Loss 100 ml # Voids 2 Result Diagram: 03/16/18 0355 03/16/18 0355 Imaging Last Impressions Pelvis Ultrasound 03/15/18 0000 Signed Impressions: Service Date/Time: Thursday, March 15, 2018 16:34 - CONCLUSION: Likely early gestational sac in the fundal endometrium. Flo Almeida MD Abdomen MRI 03/15/18 0000 Signed Impressions: Service Date/Time: Thursday, March 15, 2018 20:30 - CONCLUSION: 1. Edema around a tubular structure extending from the cecum concerning for appendicitis. 2. Small 1.2 cm gestational sac and a 2 cm left corpus luteal cyst. Flo Orourke MD ADDENDUM: COMPARISON: US PELVIS (QUEST PREG/ECTOPIC) W/TRANSVAG, March 15, 2018, 16:34. I have reviewed this case. I discussed the case with the surgeon. There does appear to be some fluid around a tubular structure in the right lower quadrant inferior to the cecum. There is some free fluid in the pelvis. The edema around the tubular structure in the right lower quadrant appears fairly localized which suggest this is more likely related to the bowel as opposed to some free fluid extending superiorly. There is free fluid in the cul-de-sac. The right ovary appears adjacent to this tubular structure. If this tubular structure represents the appendix, it is extremely elongated. Given the length of the tubular structures, segments of small bowel would more likely have this appearance however, the tubular structure cannot clearly be connected to the remaining aspect of the small bowel. This suggests despite its length, this may be the appendix. This tubular structure only measures 8 mm in diameter which is not significantly distended. No fluid is seen within the lumen. The tubular structure also appears likely too elongated to represent a fallopian tube. One should confirm that the cystic area within the endometrial cavity truly represents a gestational sac with an embryonic pole and yolk sac. These structures cannot be seen on the MRI examination. The patient had pelvic ultrasound examination performed earlier. There is a questionable yolk sac barely seen on some of the images. If there is not clinical suspicion for appendicitis, all these findings should be followed very closely. Follow pelvic ultrasound and MRI examinations can be performed as clinically needed. Flo Orourke MD Objective Remarks GENERAL: NAD SKIN: Warm and dry. HEAD: Normocephalic. EYES: No scleral icterus. No injection or drainage. NECK: Supple, trachea midline. No JVD or lymphadenopathy. CARDIOVASCULAR: Regular rate and rhythm without murmurs, gallops, or rubs. RESPIRATORY: Breath sounds equal bilaterally. No accessory muscle use. GASTROINTESTINAL: Abdomen soft, mildly tender, nondistended. inc c/d/i MUSCULOSKELETAL: No cyanosis, or edema. BACK: Nontender without obvious deformity. No CVA tenderness. Procedures 1. Diagnostic laparoscopy. 2. Evacuation hemoperitoneum. 3. Laparoscopic appendectomy. 4. Laparoscopic salpingectomy by Dr. Latrice Falk A/P Problem List: (1) Right lower quadrant abdominal pain ICD Code: R10.31 - Right lower quadrant pain (2) Ectopic ICD Code: O00.90 - Unspecified ectopic without intrauterine Assessment and Plan 32-year-old female with Right lower quadrant abdominal pain POD1 dx lap; lap appy; lap LEIGH ANN; lap RIGHT salpingectomy due to ectopic -Appreciate input from general surgery -Jamie for nausea -Pain medication IV morphine Ectopic HCG 191 -s/p lap RIGHT salpingectomy due to ectopic Appreciate input from OB, patient will need outpatient follow-up DVT prophylaxis: SCDs Discharge Planning Discharge patient to home Condition on discharge: Improved Regular Diet as tolerated Ad Jasmin activity Rx written:see EMR Follow-up with primary care physician in 1 week F-U Gen surgery Dr. Bender March 28 at 9:50AM OB in 1-2 weeks Axel Schmitt MD March 17, 2018 11:02
[2018-03-17 11:13] VITALS: BP 134/60; PULSE 73; RESP 16; TEMP 97.2; O2SAT 95
== END 2018-03-17 12:43 | disposition home or self-care (01) ==
LOC: NEPD 14:23 → NEDA 22:22 → NEPGCP 23:02 → HPAC 03-16 19:44 → NEPGCP 03-16 20:22
PROVIDERS: ADMIT Hospitalist; ATTEND Hospitalist
DX: K35.80 Unspecified acute appendicitis (principal); O00.90 Unspecified ectopic pregnancy without intrauterine pregnancy; R61 Generalized hyperhidrosis; F17.210 Nicotine dependence, cigarettes, uncomplicated; N83.12 Corpus luteum cyst of left ovary; E66.01 Morbid (severe) obesity due to excess calories; K66.1 Hemoperitoneum; N88.8 Other specified noninflammatory disorders of cervix uteri
CPT/HCPCS: 00840; 44970; 59151; 74181; 76700; 76817; 80053; 81001; 83690; 84702; 84703; 85025; 85610; 85730; 86850; 86900; 86901; 88304; 88305; 96361; 96365; 96375; 96376; 99285; G0378; J0131; J0330; J0690; J1100; J1885; J2270; J2405; J2710; J2765; J3010; J7030; J7120

== ENCOUNTER 2018-03-18 15:01 | Emergency (ER) | payer MEDICAID ==
[~2018-03-18 15:01] MED LIST changes: -AZIT250T3 PO; -BACL10TA PO; -BENZ100 PO; -CYCL10TA PO; -DICL75TA PO; -HYDR-3516 PO; +OXYC1TAB63 PO; -PRED20 PO
[2018-03-18] MEDS ORDERED: IOHEXOL 350 MG/ML 10 ML VIAL (for RAD DIAG) IVCONTRAST ONE (15:02)
[2018-03-18 15:06] VITALS: BP 155/69; PULSE 104; RESP 16; TEMP 98.4; O2SAT 99
[2018-03-18] MEDS ORDERED: SODIUM CHLOR 0.9% 1000 ML INJ 1,000 ML IV SCH (15:48)
--- NOTE | 2018-03-18 15:58 | PD ---
HPI . Abdominal pain Chief Complaint: GI Complaint Time Seen by Provider: 15:40 Travel History International Travel<30 days: No Contact w/Intl Traveler<30days: No Traveled to known affect area: No History of Present Illness HPI Patient presents with a chief complaint of abdominal pain. This patient's recent history is significant for ectopic . She was seen here 2 days ago for right lower quadrant abdominal pain. The diagnosis of appendicitis was entertained. However, she was subsequently found to have the ectopic . She went to the operating room and had both an appendectomy and a right salpingo-oophorectomy. She was discharged yesterday. She presents to us today complaining with increasing pain in her abdomen along with nausea and vomiting. She states that she has been taking a stool softener with her Percocet and had a bowel movement today but it was the first bowel movement that she has had in 4 days. She states that it did help her pain somewhat. She denies any associated urinary symptoms. She rates her pain 8/10. PFSH Past Medical History Hx Anticoagulant Therapy: No Asthma: No Blood Disorders: No Anxiety: Yes Depression: No Heart Rhythm Problems: No Cancer: No Cardiovascular Problems: Yes High Cholesterol: No Chemotherapy: No Chest Pain: Yes Congestive Heart Failure: No COPD: No Diabetes: No Diminished Hearing: No Endocrine: No Gastrointestinal Disorders: Yes Genitourinary: Yes (PAINFUL URINATION) Immune Disorder: No Musculoskeletal: No Neurologic: Yes (RARE MIGRAINE) Psychiatric: Yes Reproductive: Yes (OVARIAN CYSTS) Respiratory: No Immunizations Current: Yes Radiation Therapy: No Sleep Apnea: No Thyroid Disease: No Tetanus Vaccination: > 5 Years Influenza Vaccination: No ?: Not LMP: 03/16/18 : 1 Para: 1 Tubal Ligation: Yes Past Surgical History Abdominal Surgery: Yes (CHOLESYSTECTOMY 07/22/15) Appendectomy: Yes (03/2018) Cardiac Surgery: No Section: Yes Cholecystectomy: Yes (07/2015) Ear Surgery: No Endocrine Surgery: No Eye Surgery: No Genitourinary Surgery: No Gynecologic Surgery: No Hysterectomy: No Joint Replacement: No Neurologic Surgery: No Oral Surgery: Yes Thoracic Surgery: No Tonsillectomy: Yes Other Surgery: Yes Social History Alcohol Use: No Tobacco Use: Yes (11/10 ppd) Substance Use: No Allergies-Medications (Allergen,Severity, Reaction): Coded Allergies: No Known Allergies (Unverified Allergy, Unknown, 03/15/18) Reported Meds & Prescriptions Reported Meds & Active Scripts Active Oxycodone-Acetaminophen 5-325 (Oxycodone HCl/Acetaminophen) 5 Mg-325 Mg Tablet 1 Tab PO Q6H PRN Review of Systems Except as stated in HPI: all other systems reviewed are Neg General / Constitutional: No: Fever, Chills Respiratory: No: Cough, Shortness of Breath Gastrointestinal: Positive: Nausea, Vomiting, Abdominal Pain, Constipation, No : Diarrhea Genitourinary: No: Urgency, Frequency, Dysuria Physical Exam Narrative GENERAL: Obese female who looks moderately uncomfortable. SKIN: warm/dry. HEAD: Normocephalic. Atraumatic. EYES: Pupils equal and round. No scleral icterus. No injection or drainage. ENT: No nasal bleeding or discharge. Mucous membranes pink and moist. NECK: Trachea midline. Full range of motion without pain.. CARDIOVASCULAR: Regular rate and rhythm. Heart sounds are normal. RESPIRATORY: No accessory muscle use. Clear to auscultation. Breath sounds equal bilaterally. GASTROINTESTINAL: Abdomen soft. Because of her recent surgery, I have not palpated her abdomen deeply. She does have diffuse tenderness to superficial palpation. Bowel sounds present. Nondistended. There is an umbilical surgical wound which does not appear infected. There is some associated bruising. MUSCULOSKELETAL: No obvious deformities. NEUROLOGICAL: Awake and alert. No obvious cranial nerve deficits. Motor grossly within normal limits. Normal speech. PSYCHIATRIC: Appropriate mood and affect; insight and judgment normal. Data Data Last Documented VS Vital Signs Date Time Temp Pulse Resp B/P (MAP) Pulse Ox O2 Delivery O2 Flow Rate FiO2 03/18/18 15:43 18 03/18/18 15:06 98.4 104 155/69 (97) 99 Orders Orders Basic Metabolic Panel (Bmp) (03/18/18 15:48) Complete Blood Count With Diff (03/18/18 15:48) Urinalysis - C+S If Indicated (03/18/18 15:48) Ct Abd/Pel W Iv Contrast(Rout) (03/18/18 15:48) Iv Access Insert/Monitor (03/18/18 15:48) Morphine Inj (Morphine Inj) (03/18/18 16:00) Sodium Chlor 0.9% 1000 Ml Inj (Ns 1000 M (03/18/18 15:48) Sodium Chloride 0.9% Flush (Ns Flush) (03/18/18 16:00) Diphenhydramine Inj (Benadryl Inj) (03/18/18 16:00) Prochlorperazine Inj (Compazine Inj) (03/18/18 16:00) Labs Laboratory Tests Test 03/18/18 15:45 White Blood Count 8.8 TH/MM3 Red Blood Count 4.32 MIL/MM3 Hemoglobin 11.5 GM/DL Hematocrit 34.6 % Mean Corpuscular Volume 80.1 FL Mean Corpuscular Hemoglobin 26.7 PG Mean Corpuscular Hemoglobin Concent 33.3 % Red Cell Distribution Width 15.5 % Platelet Count 283 TH/MM3 Mean Platelet Volume 8.7 FL Neutrophils (%) (Auto) 68.1 % Lymphocytes (%) (Auto) 26.6 % Monocytes (%) (Auto) 4.4 % Eosinophils (%) (Auto) 0.3 % Basophils (%) (Auto) 0.6 % Neutrophils # (Auto) 6.0 TH/MM3 Lymphocytes # (Auto) 2.3 TH/MM3 Monocytes # (Auto) 0.4 TH/MM3 Eosinophils # (Auto) 0.0 TH/MM3 Basophils # (Auto) 0.1 TH/MM3 CBC Comment DIFF FINAL Differential Comment Urine Color YELLOW Urine Turbidity HAZY Urine pH 5.5 Urine Specific [place] 1.019 Urine Protein NEG mg/dL Urine Glucose (UA) NEG mg/dL Urine Ketones NEG mg/dL Urine Occult Blood SMALL Urine Nitrite NEG Urine Bilirubin NEG Urine Urobilinogen LESS THAN 2.0 MG/DL Urine Leukocyte Esterase SMALL Urine RBC 2 /hpf Urine WBC 1 /hpf Urine Squamous Epithelial Cells 16 /hpf Urine Bacteria RARE /hpf Urine Yeast (Budding) RARE Microscopic Urinalysis Comment CULT NOT INDICATED Blood Urea Nitrogen 9 MG/DL Creatinine 0.81 MG/DL Random Glucose 90 MG/DL Calcium Level 8.4 MG/DL Sodium Level 142 MEQ/L Potassium Level 3.9 MEQ/L Chloride Level 109 MEQ/L Carbon Dioxide Level 24.2 MEQ/L Anion Gap 9 MEQ/L Estimat Glomerular Filtration Rate 83 ML/MIN MDM Medical Decision Making Medical Screen Exam Complete: Yes Emergency Medical Condition: Yes Medical Record Reviewed: Yes (This patient was seen here a few days ago with right lower quadrant abdominal pain. She was found to be . Ultrasound was done which showed what appeared to be an intrauterine . Her ovaries and tubes looked normal on the ultrasound. There was a high clinical index of suspicion for appendicitis. The patient subsequently had an MRI which was concerning for appendicitis. She was later taken to the operating room where she was found to have the partially ruptured ectopic .) Differential Diagnosis Differential diagnosis of abdominal pain includes but is not limited to gastritis, pancreatitis, hepatitis, gastroenteritis, constipation, urinary retention, peptic ulcer disease, diverticulitis or appendicitis Narrative Course This patient presents with postoperative abdominal pain associated with nausea and vomiting. She has also been constipated probably related to her pain medication. She is taking stool softeners and did have a bowel movement today which did improve her pain. However, she still presents to us complaining with pain which she rates 8/10. Abdominal pain workup is in process including a CT to rule out an obstruction. CBC & BMP Diagram 03/18/18 15:45 Calcium Level 8.4 L UA neg for infection. Last Impressions Abdomen/Pelvis CT 03/18/18 1548 Signed Impressions: Service Date/Time: Tuesday, March 18, 2018 16:21 - CONCLUSION: Tiny amount of air beneath the umbilicus at port site Minimal air in the anterior abdominal wall at port site. Tiny amount of free intra-abdominal air. No abscess. Stu Painting MD FACR This patient does not have any significant postoperative complication. She is stable for discharge to home. I suspect that the majority of her symptoms were related to poor bowel function. Diagnosis Primary Impression: Postoperative pain Patient Instructions: Abdominal Pain (ED), General Instructions Disposition: 01 DISCHARGE HOME Condition: Stable Nany Herndon MD March 18, 2018 15:58
[2018-03-18] MEDS ORDERED: MORPHINE SULFATE 4 MG/ML INJ IV PUSH ONE (16:00)
[2018-03-18] MEDS ORDERED: diphenhydrAMINE HCL 50 MG/ML VIAL IV PUSH ONE (16:00)
[2018-03-18] MEDS ORDERED: SODIUM CHLORIDE 0.9% FLUSH 10 ML FLUSH IV FLUSH PRN (16:00)
[2018-03-18] MEDS ORDERED: PROCHLORPERAZINE INJ 10 MG/2 ML VIAL IV PUSH ONE (16:00)
[2018-03-18 16:37] LABS: BASOPHIL # 0.1 TH/MM3 (0-0.2); BASOPHIL % 0.6 % (0.0-2.0); EOSINOPHIL % 0.3 % (0.0-4.0); HEMATOCRIT 34.6 % (35.0-46.0); HEMOGLOBIN 11.5 GM/DL (11.6-15.3); LYMPH % 26.6 % (9.0-44.0); LYMPHOCYTE # 2.3 TH/MM3 (1.0-4.8); MEAN CELL VOLUME 80.1 FL (80.0-100.0); MEAN CORPUSCULAR HEMOGLOBIN 26.7 PG (27.0-34.0); MEAN CORPUSCULAR HGB CONC 33.3 % (32.0-36.0); MEAN PLATELET VOLUME 8.7 FL (7.0-11.0); MONO % 4.4 % (0.0-8.0); MONOCYTE # 0.4 TH/MM3 (0-0.9); NEUT % 68.1 % (16.0-70.0); PLATELET COUNT 283 TH/MM3 (150-450); RED BLOOD COUNT 4.32 MIL/MM3 (4.00-5.30); RED CELL DISTRIBUTION WIDTH 15.5 % (11.6-17.2); WHITE BLOOD COUNT 8.8 TH/MM3 (4.0-11.0)
[2018-03-18 16:53] LABS: BICARBONATE 24.2 MEQ/L (21.0-32.0); CALCIUM 8.4 MG/DL (8.5-10.1); CREATININE 0.81 MG/DL (0.50-1.00)
[2018-03-18 16:54] LABS: BACTERIA, URINE RARE /hpf; BILIRUBIN, URINE NEG (NEG); BLOOD, URINE SMALL (NEG); GLUCOSE,URINE NEG (NEG); KETONE, URINE NEG (NEG); NITRITE,URINE NEG (NEG); PH, URINE 5.5 (5.0-8.5); SQUAMOUS EPITHELIAL CELL URINE 16 /hpf (0-5); URINE COLOR YELLOW (YELLW/STRAW); URINE LEUKOCYTE ESTERASE SMALL (NEG)
--- NOTE | 2018-03-18 16:54 | RADRPT ---
EXAM DATE/TIME: 03/18/2018 16:21 [facility] COMPARISON: MRI ABDOMEN W/O CONTRAST, March 15, 2018, 20:30. CT ABDOMEN & PELVIS W CONTRAST, August 22, 2015, 1:0 4. INDICATIONS : Post operative abdominal pain. Appendectomy last . IV CONTRAST: 95 cc Omnipaque 350 (iohexol) IV ORAL CONTRAST: No oral contrast ingested. RADIATION DOSE: 20.99 CTDIvol (mGy) MEDICAL HISTORY : Ovarian cysts SURGICAL HISTORY : Cholecystectomy. section.Appendectomy on 03/16/18 ENCOUNTER: Initial ACUITY: 1 day PAIN SCALE: 8/10 LOCATION: Abdomen TECHNIQUE: Volumetric scanning of the abdomen and pelvis was performed. Using automated exposure control and ad justment of the mA and/or kV according to patient size, radiation dose was kept as low as reasonably achievable to obtain optimal diagnostic quality images. DICOM format image data is available electro nically for review and comparison. FINDINGS: Lower lungs are clear.. The liver is free of focal defects. Surgical clips gallbladder fossa Spleen and pancreas unremarkable Adrenal glands appear normal Right and left kidneys are unremarkable Very minimal degenerative changes in the anterior abdominal wall at site of port placement for append ectomy. There is at tiny amount of air present. I do not see definite abscess. There is no indurat ion around the cecum or the appendix. There is no free fluid. Small cystic 2.5 severe left adnexal mass. CONCLUSION: Tiny amount of air beneath the umbilicus at port site Minimal air in the anterior abdominal wall at port site. Tiny amount of free intra-abdominal air. N o abscess. Stu Painting MD FACR on March 18, 2018 at 16:40 Board Certified Radiologist. This report was verified electronically.
[2018-03-18 17:05] VITALS: RESP 16
== END 2018-03-18 17:32 | disposition home or self-care (01) ==
LOC: NEPC 15:01
DX: G89.18 Other acute postprocedural pain (principal); R11.2 Nausea with vomiting, unspecified; F41.9 Anxiety disorder, unspecified; F17.210 Nicotine dependence, cigarettes, uncomplicated
CPT/HCPCS: 74177; 80048; 81001; 85025; 96361; 96374; 96375; 99284; J0780; J1200; J2270; J7030; Q9967

== ENCOUNTER 2018-04-26 15:02 | Emergency (ER) | payer SELFPAY ==
[~2018-04-26] VITALS: Ht 167.6 cm; Wt 140.0 kg
[2018-04-26 15:06] VITALS: BP 154/75; PULSE 99; RESP 16; TEMP 98.8; O2SAT 99
[2018-04-26] MEDS ORDERED: BACT800T5 PO (15:29)
--- NOTE | 2018-04-26 15:30 | PD ---
HPI Chief Complaint: Skin Problem Time Seen by Provider: 15:15 Travel History International Travel<30 days: No Contact w/Intl Traveler<30days: No Traveled to known affect area: No History of Present Illness HPI 33-year-old female presents to the emergency department with complaint of possible bug bites to the back of her left thigh since yesterday, with worsening. Says they were itchy, but they are not really itching anymore. Denies pain. Denies fever, vomiting. Denies paresthesias, loss of sensation, decreased range of motion, decreased strength to the affected extremity. Has not taken any medication or trying treatments to alleviate her symptoms. Symptoms are mild in severity. No known aggravating or relieving factors. Known else with similar symptoms. Primary care provider is Dr. Clark. No known allergies. Denies significant past medical history. Has no other medical complaints. No other modifying factors or associated signs and symptoms. PFSH Past Medical History Hx Anticoagulant Therapy: No Asthma: No Blood Disorders: No Anxiety: Yes Depression: No Heart Rhythm Problems: No Cancer: No Cardiovascular Problems: Yes High Cholesterol: No Chemotherapy: No Chest Pain: Yes Congestive Heart Failure: No COPD: No Diabetes: No Diminished Hearing: No Endocrine: No Gastrointestinal Disorders: Yes Genitourinary: Yes (PAINFUL URINATION) Immune Disorder: No Musculoskeletal: No Neurologic: Yes (RARE MIGRAINE) Psychiatric: Yes Reproductive: Yes (OVARIAN CYSTS) Respiratory: No Immunizations Current: Yes Radiation Therapy: No Sleep Apnea: No Thyroid Disease: No ?: Not : 1 Para: 1 Tubal Ligation: Yes Past Surgical History Abdominal Surgery: Yes (CHOLESYSTECTOMY 07/22/15) Appendectomy: Yes (03/2018) Cardiac Surgery: No Section: Yes Cholecystectomy: Yes (07/2015) Ear Surgery: No Endocrine Surgery: No Eye Surgery: No Genitourinary Surgery: No Gynecologic Surgery: No Hysterectomy: No Joint Replacement: No Neurologic Surgery: No Oral Surgery: Yes Thoracic Surgery: No Tonsillectomy: Yes Other Surgery: Yes Social History Alcohol Use: No Tobacco Use: Yes (11/10 ppd) Substance Use: No Allergies-Medications (Allergen,Severity, Reaction): Coded Allergies: No Known Allergies (Unverified Allergy, Unknown, 04/26/18) Reported Meds & Prescriptions Reported Meds & Active Scripts Active Bactrim DS (Sulfamethoxazole-Trimethoprim) 800-160 Mg Tab 1 Tab PO BID 7 Days Review of Systems Except as stated in HPI: all other systems reviewed are Neg Physical Exam Narrative GENERAL: Well-nourished, well-developed patient, in no acute distress ; afebrile, nontoxic-appearing SKIN: Warm and dry. Posterior left thigh with a cluster of pimple-like lesions surrounded by erythema; possibly consistent with bedbug bites; no cellulitis, warm to touch. No lymphangitis. No signs of infection. HEAD: Atraumatic. Normocephalic. EYES: Pupils equal and round. No scleral icterus. No injection or drainage. ENT: Mucosa pink and moist. Airway patent. NECK: Trachea midline. CARDIOVASCULAR: Regular rate. RESPIRATORY: No accessory muscle use. GASTROINTESTINAL: Morbidly obese. MUSCULOSKELETAL: No obvious deformities. No clubbing. No cyanosis. No edema. NEUROLOGICAL: Awake and alert. Oriented 3. No obvious cranial nerve deficits. Motor grossly within normal limits. Normal speech. PSYCHIATRIC: Appropriate mood and affect; insight and judgment normal. Data Data Last Documented VS Vital Signs Date Time Temp Pulse Resp B/P (MAP) Pulse Ox O2 Delivery O2 Flow Rate FiO2 04/26/18 15:06 98.8 99 16 154/75 (101) 99 Orders Orders Ed Discharge Order (04/26/18 15:30) MDM Medical Decision Making Medical Screen Exam Complete: Yes Emergency Medical Condition: Yes Medical Record Reviewed: Yes Differential Diagnosis Bedbug bite, insect bite, contact dermatitis, nonspecific rash or skin eruption Narrative Course 33-year-old female with a nonspecific rash or skin eruption to the back of her left thigh. There is a cluster of pimple-like, erythemic rash. Patient states it was itchy. No pain. No signs of cellulitis. No drainage. Patient is afebrile and nontoxic-appearing. She denies fever, vomiting. Areas of the rash were marked with a surgical marker. She is requesting a prescription for antibiotics. I will give the patient a prescription for antibiotics as requested. Instructed patient to follow up with primary care provider. Patient verbalizes understanding and agreement with treatment plan. Patient is medically cleared and stable for discharge. Discussed reasons to return to the emergency department. Patient agrees with treatment plan. The patients vital signs are stable and the patient is stable for outpatient follow-up and treatment. Patient discharged home, stable and in no acute distress. Diagnosis Primary Impression: Rash and other nonspecific skin eruption Referrals: [facility] [facility] Primary Care Physician Patient Instructions: Acute Rash (ED), General Instructions, Insect Bite or Sting (ED) Additional Instructions: [id number] topicals to reduce itch Benadryl as directed and as needed to reduce itch Follow-up with your primary care provider Follow-up with data analytics specialist if symptoms persist and as needed Return to the emergency department immediately with worsening of symptoms Med/Other Pt SpecificInfo: Prescription(s) given Scripts Sulfamethoxazole-Trimethoprim (Bactrim DS) 800-160 Mg Tab 1 TAB PO BID for Infection for 7 Days, #14 TAB 0 Refills Prov: Jen Hyatt 04/26/18 Disposition: 01 DISCHARGE HOME Condition: Stable Jen Hyatt Apr 26, 2018 15:30
== END 2018-04-26 15:40 | disposition home or self-care (01) ==
LOC: NEPK 15:02
DX: R21 Rash and other nonspecific skin eruption (principal); F41.9 Anxiety disorder, unspecified; F17.200 Nicotine dependence, unspecified, uncomplicated
CPT/HCPCS: 99283

== ENCOUNTER 2018-04-30 15:15 | Emergency (ER) | payer MEDICAID ==
[~2018-04-30] VITALS: Ht 167.6 cm; Wt 137.9 kg
[~2018-04-30 15:15] MED LIST changes: +BACT800T5 PO
[2018-04-30 15:21] VITALS: BP 139/91; PULSE 100; RESP 16; TEMP 98.4; O2SAT 98
[2018-04-30] MEDS ORDERED: KETOROLAC TROMETHAMINE 30 MG/ML (IVP) VIAL IVP ONE (15:45)
[2018-04-30] MEDS: METOCLOPRAMIDE INJ 10 MG in SODIUM CHLORIDE 0.9% INJ 50 ML IV ONE ×2 (16:08→16:25)
--- NOTE | 2018-04-30 16:20 | PD ---
HPI Chief Complaint: Abdominal Pain Time Seen by Provider: 15:28 Travel History International Travel<30 days: No Contact w/Intl Traveler<30days: No Traveled to known affect area: No History of Present Illness HPI 33yo F presents to the ED with c/o right upper abdominal pain, nausea, vomiting and headache today. Pain is sharp, nonradiating. Denies any fever, chest pain , sob, dysuria, hematuria, vaginal bleeding or vaginal discharge. Pt had right ectopic s/p salpingectomy and appendectomy on 03/16/18. Pt return to the ED 03/18/[address] and had CT a/p that was negative. Pt has had cholecystectomy 2 years ago. PFSH Past Medical History Hx Anticoagulant Therapy: No Asthma: No Blood Disorders: No Anxiety: Yes Depression: No Heart Rhythm Problems: No Cancer: No Cardiovascular Problems: Yes High Cholesterol: No Chemotherapy: No Chest Pain: Yes Congestive Heart Failure: No COPD: No Diabetes: No Diminished Hearing: No Endocrine: No Gastrointestinal Disorders: Yes Genitourinary: Yes (PAINFUL URINATION) Immune Disorder: No Musculoskeletal: No Neurologic: Yes (RARE MIGRAINE) Psychiatric: Yes Reproductive: Yes (OVARIAN CYSTS) Respiratory: No Immunizations Current: Yes Radiation Therapy: No Sleep Apnea: No Thyroid Disease: No Influenza Vaccination: No ?: Unknown LMP: mar, 2018 : 1 Para: 1 Tubal Ligation: Yes Past Surgical History Abdominal Surgery: Yes (CHOLESYSTECTOMY 07/22/15) Appendectomy: Yes (03/2018) Cardiac Surgery: No Section: Yes Cholecystectomy: Yes (07/2015) Ear Surgery: No Endocrine Surgery: No Eye Surgery: No Genitourinary Surgery: No Gynecologic Surgery: No Hysterectomy: No Joint Replacement: No Neurologic Surgery: No Oral Surgery: Yes Thoracic Surgery: No Tonsillectomy: Yes Other Surgery: Yes Social History Alcohol Use: No Tobacco Use: Yes (11/10 ppd) Substance Use: No Allergies-Medications (Allergen,Severity, Reaction): Coded Allergies: No Known Allergies (Unverified Allergy, Unknown, 04/30/18) Reported Meds & Prescriptions Reported Meds & Active Scripts Active Tylenol (Acetaminophen) 325 Mg Tab 650 Mg PO Q6H PRN Macrobid (Nitrofurantoin Monoh/Nitrofur Macro) 100 Mg Cap 100 Mg PO BID 5 Days Review of Systems Except as stated in HPI: all other systems reviewed are Neg Physical Exam Narrative GENERAL: 33yo F in mild distress. SKIN: Focused skin assessment warm/dry. HEAD: Atraumatic. Normocephalic. EYES: Pupils equal and round. No scleral icterus. No injection or drainage. ENT: No nasal bleeding or discharge. Mucous membranes pink and moist. NECK: Trachea midline. No JVD. CARDIOVASCULAR: Regular rate and rhythm. No murmur appreciated. RESPIRATORY: No accessory muscle use. Clear to auscultation. Breath sounds equal bilaterally. GASTROINTESTINAL: Abdomen soft, +TTP RUQ. No rebound tenderness or guarding. MUSCULOSKELETAL: No obvious deformities. No clubbing. No cyanosis. No edema. NEUROLOGICAL: Awake and alert. No obvious cranial nerve deficits. Motor grossly within normal limits. Normal speech. PSYCHIATRIC: Appropriate mood and affect; insight and judgment normal. Data Data Last Documented VS Vital Signs Date Time Temp Pulse Resp B/P (MAP) Pulse Ox O2 Delivery O2 Flow Rate FiO2 04/30/18 21:23 75 16 130/80 (97) 99 04/30/18 20:28 Room Air 04/30/18 15:21 98.4 Orders Orders Complete Blood Count With Diff (04/30/18 15:44) Comprehensive Metabolic Panel (04/30/18 15:44) Lipase (04/30/18 15:44) Urinalysis - C+S If Indicated (04/30/18 15:44) Ketorolac Inj (Toradol Inj) (04/30/18 15:45) Ed Urine Pregnancytest Poc (04/30/18 15:44) Metoclopramide Inj (Reglan Inj) (04/30/18 15:45) Beta Hcg (Quant/Titer) (04/30/18 16:20) Ed Poc Ultrasound (04/30/18 ) Urine Culture (04/30/18 15:58) Acetaminophen (Tylenol) (04/30/18 17:30) Us Pelvis (Ques Preg/Ectopic) (04/30/18 ) Ed Discharge Order (04/30/18 21:22) Labs Laboratory Tests Test 04/30/18 15:58 04/30/18 16:06 Urine Collection Type CLEAN CATCH Urine Color YELLOW Urine Turbidity SL CLOUDY Urine pH 5.5 Urine Specific [place] GREATER/EQUAL 1.030 Urine Protein 30 mg/dL Urine Glucose (UA) NEG mg/dL Urine Ketones TRACE mg/dL Urine Occult Blood NEG Urine Nitrite NEG Urine Bilirubin NEG Urine Urobilinogen 0.2 MG/DL Urine Leukocyte Esterase NEG Urine WBC 3-5 /hpf Urine Squamous Epithelial Cells 6-8 /hpf Urine Amorphous Sediment MOD Urine Bacteria MOD /hpf Microscopic Urinalysis Comment CULTURE INDICATED Urine Collection Time 1558 White Blood Count 9.4 TH/MM3 Red Blood Count 4.75 MIL/MM3 Hemoglobin 12.9 GM/DL Hematocrit 38.1 % Mean Corpuscular Volume 80.3 FL Mean Corpuscular Hemoglobin 27.1 PG Mean Corpuscular Hemoglobin Concent 33.8 % Red Cell Distribution Width 13.8 % Platelet Count 278 TH/MM3 Mean Platelet Volume 9.3 FL Neutrophils (%) (Auto) 80.8 % Lymphocytes (%) (Auto) 16.2 % Monocytes (%) (Auto) 1.9 % Eosinophils (%) (Auto) 0.2 % Basophils (%) (Auto) 0.9 % Neutrophils # (Auto) 7.6 TH/MM3 Lymphocytes # (Auto) 1.5 TH/MM3 Monocytes # (Auto) 0.2 TH/MM3 Eosinophils # (Auto) 0.0 TH/MM3 Basophils # (Auto) 0.1 TH/MM3 CBC Comment DIFF FINAL Differential Comment Blood Urea Nitrogen 8 MG/DL Creatinine 0.62 MG/DL Random Glucose 91 MG/DL Total Protein 7.9 GM/DL Albumin 3.5 GM/DL Calcium Level 8.8 MG/DL Alkaline Phosphatase 89 U/L Aspartate Amino Transf (AST/SGOT) 14 U/L Alanine Aminotransferase (ALT/SGPT) 15 U/L Total Bilirubin 0.4 MG/DL Sodium Level 137 MEQ/L Potassium Level 3.8 MEQ/L Chloride Level 104 MEQ/L Carbon Dioxide Level 21.9 MEQ/L Anion Gap 11 MEQ/L Estimat Glomerular Filtration Rate 112 ML/MIN Lipase 73 U/L Human Chorionic Gonadotropin, Quant 60989 MIU/ML [facility] Medical Decision Making Medical Screen Exam Complete: Yes Emergency Medical Condition: Yes Differential Diagnosis Choledocholithiasis vs. pancreatitis vs. gastritis vs. migraine headache Narrative Course 33yo F with RUQ and headache today. Headache sounds like migraine headache. Pt given reglan and toradol. Pt reevaluated at bedside and said headache has resolved. However, still with abdominal pain. Pt's abdomen is soft, only mildly tender in RUQ. No rebound tenderness or guarding. Labs reviewed, no leukocytosis. H/H normal. LFTs normal. Lipase normal. Urine is positive so [place] [address]. Bedside ultrasound showed no free fluid in RUQ or LUQ. However, there is an intrauterine seen. Will obtain official US to evaluate for heterotopic since pt just had a right salpingectomy for right ectopic last month by Dr. Cunha. Pt given acetaminophen. Pt is hungry and wants to eat. Denies any vaginal bleeding and is well appearing. Official US showed single viable intrauterine of 12 weeks by crown rump length. 2.1cm cyst left ovary. Right ovary surgically absent. Called Dr. Cunha but Dr. Cruz is consolidation accountant and he said she can follow up with them in the office and to call tomorrow. Urinalysis showed moderate bacteria. Squamous 6-8. Since pt is , will cover with macrobid. Return precautions given. Procedures Procedure Narrative Emergency department FAST was performed with patient consent. The curvilinear probe was used in the right upper quadrant/Morison's pouch, suprapubic, left upper quadrant/splenorenal space. There was no evidence of peritoneal free fluid but when I ultrasound the suprapubic area, I saw an intrauterine . Emergency Department Pelvic ultrasound was performed with patient consent. The curvilinear probe was used in the transverse and sagittal views within the suprapubic region revealing single intrauterine . Diagnosis Primary Impression: Intrauterine Referrals: Latrice Cunha MD call for appointment Please call tomorrow for appointment Patient Instructions: General Instructions Departure Forms: Tests/Procedures Additional Instructions: Please call Dr. Cunha's office tomorrow for outpatient follow up. Return to the ED if symptoms worsen. Med/Other Pt SpecificInfo: Prescription(s) given Scripts Acetaminophen (Tylenol) 325 Mg Tab 650 MG PO Q6H Y for PAIN SCALE 1 TO 4, #20 TAB 0 Refills Prov: Breanna Perales DO 04/30/18 Nitrofurantoin Monohydrate Macrocrystals (Macrobid) 100 Mg Cap 100 MG PO BID for Infection for 5 Days, #10 CAP 0 Refills Prov: Breanna Perales DO 04/30/18 Disposition: 01 DISCHARGE HOME Condition: Stable Breanna Preales DO Apr 30, 2018 16:20
[2018-04-30 16:38] LABS: AUTOMATED NEUTROPHIL # 7.6 TH/MM3 (1.8-7.7); BASOPHIL # 0.1 TH/MM3 (0-0.2); BASOPHIL % 0.9 % (0.0-2.0); EOSINOPHIL % 0.2 % (0.0-4.0); HEMATOCRIT 38.1 % (35.0-46.0); HEMOGLOBIN 12.9 GM/DL (11.6-15.3); LYMPH % 16.2 % (9.0-44.0); LYMPHOCYTE # 1.5 TH/MM3 (1.0-4.8); MEAN CELL VOLUME 80.3 FL (80.0-100.0); MEAN CORPUSCULAR HEMOGLOBIN 27.1 PG (27.0-34.0); MEAN CORPUSCULAR HGB CONC 33.8 % (32.0-36.0); MEAN PLATELET VOLUME 9.3 FL (7.0-11.0); MONO % 1.9 % (0.0-8.0); MONOCYTE # 0.2 TH/MM3 (0-0.9); NEUT % 80.8 % (16.0-70.0); PLATELET COUNT 278 TH/MM3 (150-450); RED BLOOD COUNT 4.75 MIL/MM3 (4.00-5.30); RED CELL DISTRIBUTION WIDTH 13.8 % (11.6-17.2); WHITE BLOOD COUNT 9.4 TH/MM3 (4.0-11.0)
[2018-04-30 16:46] LABS: CHLORIDE 104 MEQ/L (98-107); SODIUM (NA) 137 MEQ/L (136-145)
[2018-04-30 16:49] LABS: CALCIUM 8.8 MG/DL (8.5-10.1)
[2018-04-30 16:50] LABS: ALBUMIN 3.5 GM/DL (3.4-5.0); BICARBONATE 21.9 MEQ/L (21.0-32.0); BLOOD UREA NITROGEN 8 MG/DL (7-18); GLUCOSE,RANDOM 91 MG/DL (74-106)
[2018-04-30 16:53] LABS: ALT (GPT) 15 U/L (10-53); AST (GOT) 14 U/L (15-37); CREATININE 0.62 MG/DL (0.50-1.00); GLOMERULAR FILTRATION RATE 112 ML/MIN (>89)
[2018-04-30 16:54] LABS: TOTAL BILIRUBIN ADULT 0.4 MG/DL (0.2-1.0); TOTAL PROTEIN 7.9 GM/DL (6.4-8.2)
[2018-04-30 16:56] LABS: ALKALINE PHOSPHATASE 89 U/L (45-117)
[2018-04-30 17:02] LABS: BLOOD, URINE NEG (NEG); GLUCOSE,URINE NEG (NEG); KETONE, URINE TRACE mg/dL (NEG); NITRITE,URINE NEG (NEG); PH, URINE 5.5 (5.0-8.5); URINE COLOR YELLOW (YELLW/STRAW); URINE LEUKOCYTE ESTERASE NEG (NEG)
[2018-04-30 17:04] LABS: BILIRUBIN, URINE NEG (NEG)
[2018-04-30 17:22] LABS: AMORPHOUS SEDIMENT, URINE MOD; BACTERIA, URINE MOD /hpf
[2018-04-30] MEDS ORDERED: ACETAMINOPHEN 325 MG TAB PO ONE (17:30)
[2018-04-30 20:28] VITALS: BP 112/53; PULSE 80; RESP 18; O2SAT 98
--- NOTE | 2018-04-30 20:41 | RADRPT ---
EXAM DATE: 04/30/2018 8:27 PM EDT AGE/SEX: 33 years / Female INDICATIONS: Pelvic pain. CLINICAL DATA: This is the patient's subsequent encounter. Patient reports that signs and symptoms h ave been present for 1 week and indicates a pain score of 3/10. MEDICAL/SURGICAL HISTORY: . Appendectomy. Cholecystectomy. Right salpingectomy - ecto pic removed 03/16/18. COMPARISON: No prior exams available for comparison. TECHNIQUE: Real-time ultrasound of the pelvis was performed using an endovaginal transducer. BHC,458 MEASUREMENTS: Uterus:__11.7 x 9.5 x 7.6 cm Endometrial Stripe:__10 mm Right Ovary:__ _ Surgically absent. Left Ovary:__ 3.5 x 3.1 x 2.5 cm FINDINGS: Uterus: There is a viable intrauterine of 12 weeks 0 days by crown-rump length. heart rate is 145 Bpm. Yolk sac is not visualized. Right Ovary: Surgically absent. Left Ovary: 2.1 cm cyst left ovary. Other: None. CONCLUSION: 1. Single viable intrauterine of 12 weeks by crown-rump length. 2.1 cm cyst left ovary. Ri ght ovary surgically absent. Electronically signed by: José Manuel Argueta MD 04/30/2018 8:40 PM EDT
[2018-04-30] MEDS ORDERED: TYLE325T PO (21:22)
[2018-04-30] MEDS ORDERED: MACR100C2 PO (21:22)
[2018-04-30 21:23] VITALS: BP 130/80
== END 2018-04-30 21:31 | disposition home or self-care (01) ==
LOC: PHED 15:15
DX: O21.9 Vomiting of pregnancy, unspecified (principal); R51 Headache; R10.11 Right upper quadrant pain; O34.81 Maternal care for other abnormalities of pelvic organs, first trimester; N83.202 Unspecified ovarian cyst, left side; O99.341 Other mental disorders complicating pregnancy, first trimester; F41.9 Anxiety disorder, unspecified; O99.331 Smoking (tobacco) complicating pregnancy, first trimester; F17.210 Nicotine dependence, cigarettes, uncomplicated; Z3A.12 12 weeks gestation of pregnancy
CPT/HCPCS: 76700; 80053; 81001; 83690; 84702; 84703; 85025; 87086; 96365; 96375; 99284; J1885; J2765